=== PATIENT | male | born 1950 ===

== ENCOUNTER → 2018-03-28 10:49 | Outpatient (CLI) | payer OTHER, SELFPAY ==
--- NOTE | 2018-03-28 | DI.CT.S_ITS ---
PROCEDURE: CT ANGIO CHEST PE PROTOCOL INDICATIONS: 67 year-old male with shortness of breath. TECHNIQUE: After the administration of intravenous contrast, 2 mm thick sections acquired from the pulmonary apices to the posterior costophrenic angles. 3-dimensional maximum intensity projection (MIP) coronal and sagittal reformats were then acquired through the thorax. For radiation dose reduction, the following was used: automated exposure control, adjustment of mA and/or kV according to patient size. COMPARISON: None. FINDINGS: Image quality: Excellent. Pulmonary arteries: Pulmonary arteries are normal in size, and demonstrate no intraluminal filling defects to suggest central pulmonary embolism. Lungs and pleura: Lungs are clear. No pleural effusions or pneumothorax. Central and peripheral airways are patent. Mediastinum: There is mild cardiomegaly, with mild coronary artery atherosclerosis. No pericardial effusion. No mediastinal or hilar adenopathy. Thoracic aorta is normal in caliber and enhancement. Esophagus is normal in caliber, with small hiatal hernia. Bones and chest wall: No suspicious bony lesions. There is nonacute lateral right sixth rib fracture. Thoracic spine appears intact throughout, with multilevel disc degeneration. Thyroid gland is normal in overall size. No axillary or supraclavicular adenopathy. Abdomen: There is nonobstructing 2 mm left renal stone. Visualized upper abdominal solid organs appear normal in the early arterial phase of enhancement, status post cholecystectomy. IMPRESSION: 1. No evidence for central pulmonary embolism. 2. No acute pulmonary disease. 3. Nonobstructing 2 mm left renal stone. 4. Nonacute healed right lateral sixth rib fracture. 5. Small hiatal hernia. Dictated by: Taran Scott M.D. on 03/28/2018 at 12:47 Approved by: Taran Scott M.D. on 03/28/2018 at 12:55
[2018-03-28 11:20] LABS: Estimated Glomerular Filt Rate > 60.0 mL/min (>60)
== END ==
PROVIDERS: Family Provider Internal Medicine; PCP Internal Medicine; Visit Provider Internal Medicine
DX: R06.02 Shortness of breath (principal)
CPT/HCPCS: 36415; 71275; 82565; 84520; Q9967

== ENCOUNTER → 2019-01-12 15:14 | Outpatient (CLI) | payer MEDICARE, SELFPAY ==
[2019-01-12 16:25] LABS: Add Manual Diff / Slide Review NO; Basophils Absolute Auto 0 /uL (0-100); Basophils Percent Auto 0.4 % (0-2); Eosinophils Absolute Auto 300 /uL (0-450); Eosinophils Percent Auto 6.2 % (2-4); Hemoglobin 12.5 g/dL (13.5-17.5); Lymphocytes Absolute Auto 1600 /uL (1100-4500); Mean Corpuscular Hemoglobin 30.9 PG (26-34); Mean Corpuscular Volume 93.7 fL (80-100); Monocytes Absolute Auto 400 /uL (0-900); Monocytes Percent Auto 8.7 % (3-14); Neutrophils Absolute Auto 2700 /uL (1500-7000); Neutrophils Percent Auto 52.7 % (50-75); Platelet Count 209 X10^3/uL (150-400); Red Blood Cell Count 4.05 X10^6/uL (4.5-5.9); Red Cell Distribution Width 13.2 % (11.6-14.8); White Blood Cell Count 5.1 X10^3/uL (4.5-11.0)
[2019-01-12 16:44] LABS: B Type Natriuretic Peptide 135 (<100)
[2019-01-12 17:26] LABS: Cholesterol 176 mg/dL (140-199); HDL Cholesterol 57 mg/dL (40-60); LDL Cholesterol Calculated 98 mg/dL (<100); Triglycerides 104 mg/dL (35-150)
[2019-01-12 17:57] LABS: Prostate Specific Antigen Scrn 2.88 ng/mL (0.1-4.0)
[2019-01-12 18:16] LABS: Hep C Virus Ab w/Reflex Quant NEGATIVE s/c (NEGATIVE)
== END ==
PROVIDERS: PCP Internal Medicine; Visit Provider Internal Medicine
DX: E78.00 Pure hypercholesterolemia, unspecified (principal); M15.0 Primary generalized (osteo)arthritis; J45.909 Unspecified asthma, uncomplicated
CPT/HCPCS: 36415; 80061; 83880; 85025; 86803; G0103

== ENCOUNTER → 2019-08-29 16:31 | Outpatient (CLI) | payer OTHER, SELFPAY ==
--- NOTE | 2019-08-29 | DI.RAD.S_ITS ---
PROCEDURE: XR CHEST 2V INDICATIONS: ACUTE BRONCHITIS, UNSPECIFIED ORGANISM TECHNIQUE: 2 views of the chest were acquired. COMPARISON: CT pulmonary angiogram 03/28/2018, [facility], , CHEST 2 VIEW, 01/14/2015, 16:34. FINDINGS: Surgical changes and devices: Cholecystectomy clips. Lungs and pleura: No consolidation. Increased interstitial markings. No pleural effusions or pneumothorax. Mediastinum: Mediastinal contours are unchanged. Heart size is normal. Bones and chest wall: No suspicious bony abnormalities. Prior right-sided rib fracture. Increased density in the lower thoracic spine vertebral bodies with loss of intervertebral disc space height is most compatible with degenerative change and has increased compared to 2015. Soft tissues appear unremarkable. IMPRESSION: No consolidation. Increased interstitial markings compared to prior CXR. This may be due to differences in technique, bronchitis, or emphysematous change. Dictated by: Keagan Kapadia M.D. on 08/30/2019 at 9:31 Approved by: Keagan Kapadia M.D. on 08/30/2019 at 9:36
== END ==
PROVIDERS: PCP Internal Medicine; Visit Provider Internal Medicine
DX: J20.9 Acute bronchitis, unspecified (principal)
CPT/HCPCS: 71046

== ENCOUNTER → 2020-01-21 13:39 | Outpatient (CLI) | payer MEDICARE, SELFPAY ==
[2020-01-21 15:53] LABS: Alanine Aminotransferase 46 IU/L (<50); Albumin 4.5 g/dL (3.5-5.0); Albumin Globulin Ratio 1.4 (1.0-2.8); Alkaline Phosphatase 77 U/L (38-126); Aspartate Aminotransferase 41 IU/L (17-59); BUN Creatinine Ratio 15.6 (6-22); Bilirubin Total 0.4 mg/dL (0.2-1.3); Blood Urea Nitrogen 25 mg/dL (9-20); Calcium 9.6 mg/dL (8.4-10.2); Carbon Dioxide 27 mmol/L (22-32); Chloride 105 mmol/L (98-107); Cholesterol 181 mg/dL (140-199); Estimated Glomerular Filt Rate 43.2 mL/min (>60); Globulin 3.2 g/dL (1.7-4.1); Glucose 104 mg/dL (80-110); HDL Cholesterol 57 mg/dL (40-60); HEMOLYSIS < 15 (0-50); LDL Cholesterol Calculated 93 mg/dL (<100); Potassium 4.8 mmol/L (3.4-5.1); Sodium 139 mmol/L (137-145); Total Protein 7.7 g/dL (6.3-8.2); Triglycerides 157 mg/dL (35-150)
== END ==
PROVIDERS: Referring Provider Internal Medicine; Visit Provider Internal Medicine
DX: E78.00 Pure hypercholesterolemia, unspecified (principal); M15.0 Primary generalized (osteo)arthritis; J45.909 Unspecified asthma, uncomplicated
CPT/HCPCS: 36415; 80053; 80061

== ENCOUNTER → 2020-01-22 15:55 | Outpatient (CLI) | payer MEDICARE, SELFPAY ==
[2020-01-22 17:34] LABS: Add Manual Diff / Slide Review NO; Basophils Absolute Auto 0 /uL (0-100); Basophils Percent Auto 0.6 % (0-2); Eosinophils Absolute Auto 300 /uL (0-450); Hematocrit 36.8 % (41-53); Hemoglobin 12.5 g/dL (13.5-17.5); Lymphocytes Absolute Auto 1600 /uL (1100-4500); Lymphocytes Percent Auto 24.5 % (25-40); Mean Corpuscular HGB Conc 34.1 % (30-36); Mean Corpuscular Hemoglobin 32.2 PG (26-34); Mean Corpuscular Volume 94.5 fL (80-100); Monocytes Absolute Auto 600 /uL (0-900); Monocytes Percent Auto 8.7 % (3-14); Neutrophils Absolute Auto 4000 /uL (1500-7000); Neutrophils Percent Auto 62.2 % (50-75); Platelet Count 210 X10^3/uL (150-400); Red Blood Cell Count 3.89 X10^6/uL (4.5-5.9); Red Cell Distribution Width 13.1 % (11.6-14.8); White Blood Cell Count 6.5 X10^3/uL (4.5-11.0)
[2020-01-22 19:20] LABS: HEMOLYSIS < 15 (0-50); Iron 89 ug/dL (49-181)
[2020-01-22 19:30] LABS: Percent Iron Saturation 25 % (20-50); Total Iron Binding Capacity 350 ug/dL (261-462); Transferrin 293 mg/dL (206-381)
== END ==
PROVIDERS: Visit Provider Internal Medicine
DX: D64.9 Anemia, unspecified (principal)
CPT/HCPCS: 36415; 83540; 83550; 85025

== ENCOUNTER → 2020-12-11 17:40 | Outpatient (CLI) | payer OTHER, SELFPAY ==
[2020-12-11 18:31] LABS: Alanine Aminotransferase 52 IU/L (<50); Albumin Globulin Ratio 1.4 (1.0-2.8); Alkaline Phosphatase 68 U/L (38-126); Aspartate Aminotransferase 47 IU/L (17-59); BUN Creatinine Ratio 13.4 (6-22); Bilirubin Total 0.7 mg/dL (0.2-1.3); Blood Urea Nitrogen 20 mg/dL (9-20); Calcium 9.1 mg/dL (8.4-10.2); Carbon Dioxide 28 mmol/L (22-32); Chloride 103 mmol/L (98-107); Cholesterol 164 mg/dL (140-199); Estimated Glomerular Filt Rate 46.8 mL/min (>60); Globulin 2.8 g/dL (1.7-4.1); Glucose 89 mg/dL (80-110); HDL Cholesterol 60 mg/dL (40-60); HEMOLYSIS < 15 (0-50); LDL Cholesterol Calculated 83 mg/dL (<100); Potassium 4.2 mmol/L (3.4-5.1); Sodium 133 mmol/L (137-145); Total Protein 6.8 g/dL (6.3-8.2); Triglycerides 106 mg/dL (35-150)
== END ==
PROVIDERS: Referring Provider Internal Medicine; Visit Provider Internal Medicine
DX: J45.909 Unspecified asthma, uncomplicated (principal); E78.00 Pure hypercholesterolemia, unspecified; D64.9 Anemia, unspecified; K21.00 Gastro-esophageal reflux disease with esophagitis, without bleeding
CPT/HCPCS: 36415; 80053; 80061

== ENCOUNTER → 2021-04-09 15:49 | Outpatient (CLI) | payer OTHER, SELFPAY ==
[2021-04-09 17:46] LABS: Add Manual Diff / Slide Review NO; Basophils Absolute Auto 0 /uL (0-100); Basophils Percent Auto 0.6 % (0-2); Eosinophils Absolute Auto 300 /uL (0-450); Eosinophils Percent Auto 6.4 % (2-4); Hematocrit 35.3 % (41-53); Hemoglobin 11.7 g/dL (13.5-17.5); Lymphocytes Absolute Auto 1700 /uL (1100-4500); Lymphocytes Percent Auto 31.4 % (25-40); Mean Corpuscular HGB Conc 33.3 % (30-36); Mean Corpuscular Hemoglobin 31.4 PG (26-34); Mean Corpuscular Volume 94.2 fL (80-100); Monocytes Absolute Auto 500 /uL (0-900); Monocytes Percent Auto 9.7 % (3-14); Neutrophils Absolute Auto 2700 /uL (1500-7000); Neutrophils Percent Auto 51.9 % (50-75); Platelet Count 190 X10^3/uL (150-400); Red Blood Cell Count 3.74 X10^6/uL (4.5-5.9); Red Cell Distribution Width 13.8 % (11.6-14.8); White Blood Cell Count 5.3 X10^3/uL (4.5-11.0)
[2021-04-09 18:19] LABS: BUN Creatinine Ratio 14.6 (6-22); Blood Urea Nitrogen 23 mg/dL (9-20); Calcium 9.4 mg/dL (8.4-10.2); Carbon Dioxide 26 mmol/L (22-32); Chloride 105 mmol/L (98-107); Estimated Glomerular Filt Rate 43.7 mL/min (>60); Glucose 98 mg/dL (80-110); HEMOLYSIS < 15 (0-50); Potassium 4.3 mmol/L (3.4-5.1); Sodium 138 mmol/L (137-145)
== END ==
PROVIDERS: Referring Provider Internal Medicine; Visit Provider Internal Medicine
DX: D64.9 Anemia, unspecified (principal); I10 Essential (primary) hypertension; N18.9 Chronic kidney disease, unspecified
CPT/HCPCS: 36415; 80048; 85025

== ENCOUNTER → 2021-11-02 17:15 | Outpatient (CLI) | payer OTHER, SELFPAY ==
[2021-11-02 19:50] LABS: BUN Creatinine Ratio 12.3 (6-22); Blood Urea Nitrogen 20 mg/dL (9-20); Calcium 9.5 mg/dL (8.4-10.2); Carbon Dioxide 30 mmol/L (22-32); Chloride 103 mmol/L (98-107); Glucose 93 mg/dL (80-110); HEMOLYSIS < 15 (0-50); Potassium 4.3 mmol/L (3.4-5.1); Sodium 139 mmol/L (137-145)
== END ==
PROVIDERS: Referring Provider Internal Medicine; Visit Provider Internal Medicine
DX: J45.909 Unspecified asthma, uncomplicated (principal); E78.00 Pure hypercholesterolemia, unspecified; D64.9 Anemia, unspecified; K21.00 Gastro-esophageal reflux disease with esophagitis, without bleeding
CPT/HCPCS: 36415; 80048

== ENCOUNTER → 2022-07-05 15:53 | Outpatient (CLI) | payer MEDICARE, SELFPAY ==
[2022-07-05 16:11] LABS: Hematocrit 35.5 % (41-53); Hemoglobin 12.2 g/dL (13.5-17.5); Mean Corpuscular HGB Conc 34.3 % (30-36); Mean Corpuscular Hemoglobin 30.7 PG (26-34); Mean Corpuscular Volume 89.3 fL (80-100); Platelet Count 205 X10^3/uL (150-400); Red Blood Cell Count 3.97 X10^6/uL (4.5-5.9); Red Cell Distribution Width 14.5 % (11.6-14.8); White Blood Cell Count 5.4 X10^3/uL (4.5-11.0)
[2022-07-05 16:59] LABS: Alanine Aminotransferase 30 IU/L (<50); Albumin 4.2 g/dL (3.5-5.0); Albumin Globulin Ratio 1.3 (1.0-2.8); Alkaline Phosphatase 77 U/L (38-126); Aspartate Aminotransferase 35 IU/L (17-59); BUN Creatinine Ratio 11.8 (6-22); Bilirubin Total 0.4 mg/dL (0.2-1.3); Blood Urea Nitrogen 20 mg/dL (9-20); Calcium 9.1 mg/dL (8.4-10.2); Carbon Dioxide 26 mmol/L (22-32); Chloride 105 mmol/L (98-107); Cholesterol 182 mg/dL (140-199); Estimated Glomerular Filt Rate 43 mL/min (>60); Globulin 3.3 g/dL (1.7-4.1); Glucose 97 mg/dL (80-110); HDL Cholesterol 46 mg/dL (40-60); HEMOLYSIS < 15 (0-50); LDL Cholesterol Calculated 98 mg/dL (<100); Potassium 4.6 mmol/L (3.4-5.1); Sodium 137 mmol/L (137-145); Total Protein 7.5 g/dL (6.3-8.2); Triglycerides 188 mg/dL (35-150)
[2022-07-05 17:28] LABS: Prostate Specific Antigen 3.53 ng/mL (0.10-4.00)
[2022-07-08 06:00] LABS: Calcium 9.4 mg/dL (8.6-10.2); Parathyroid Hormone, Intact 82 pg/mL (15-65)
== END ==
PROVIDERS: PCP Internal Medicine; Referring Provider Internal Medicine; Visit Provider Internal Medicine
DX: E78.2 Mixed hyperlipidemia (principal); N40.1 Benign prostatic hyperplasia with lower urinary tract symptoms; N13.8 Other obstructive and reflux uropathy; N18.32 Chronic kidney disease, stage 3b
CPT/HCPCS: 36415; 80053; 80061; 82310; 83970; 84153; 84443; 85027

== ENCOUNTER → 2022-07-30 10:08 | Outpatient (CLI) | payer MEDICARE, SELFPAY | PROVIDERS: PCP Internal Medicine; Visit Provider Nurse Practitioner Family | DX: R21 Rash and other nonspecific skin eruption (principal) | CPT/HCPCS: 87070; 87077; 87186; 87205; 87252 ==

== ENCOUNTER 2022-10-05 10:30 | Outpatient (RCR) | payer MEDICARE, SELFPAY ==
--- NOTE | 2022-07-19 15:53 | PT.OIE ---
Current Diagnoses Muscle weakness (generalized) (07/19/22) Other shoulder lesions, right shoulder (07/19/22) Abnormal posture (07/19/22) Past Medical History (Last Updated 07/08/22 @ 07:57 by Miller Timmons MD) Allergic rhinitis Anemia (~1979) Ankle pain (~1975) Asthma, mild intermittent BPH w urinary obs/LUTS Cataracts, bilateral (~2014) Chicken pox (~1954) Chronic stasis dermatitis of left lower extremity Edema of left lower extremity due to peripheral venous insufficiency GERD without esophagitis Hearing loss (~1993) Hemorrhoid (~2009) Mixed hyperlipidemia Mumps (~1952) Primary osteoarthritis involving multiple joints Right rotator cuff tendonitis Secondary hyperparathyroidism (of renal origin) Secondary osteoarthritis, left ankle and foot Stage 3b chronic kidney disease (CKD) Past Surgical History (Last Reviewed 07/05/22 @ 12:48 by Miller Timmons MD) Anesthesia History of tonsillectomy (~1953) Status post appendectomy (~1964) Status post cholecystectomy (~1985) Status post hernia repair Visit Care Team Role Provider Type Miller Timmons MD Attending Provider Physician Primary Care Provider Referring Provider Specialty: Internal Medicine Address: [address] [place] [address] Email: [email or web address] Physical Therapy Initial Evaluation PT-OP-A Visit Information Start: 07/16/22 17:01 Freq: Status: Active Protocol: Document 07/19/22 13:03 LRN (Rec: 07/19/22 14:37 [id number]) Out-Patient Physical Therapy Visit Information Visit Information Visit Type Initial Evaluation Visit Start Time 13:03 Visit Stop Time 13:55 Total Visit Minutes 55 Visit Number 1 Evaluation Information Evaluation Date 07/19/22 Precautions Precautions L ankle injury receiving cortisone injections quarterly over 4 yrs, 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 PT-OP-B Current Condition Start: 07/16/22 17:01 Freq: Status: Active Protocol: Document 07/19/22 13:03 LRN (Rec: 07/19/22 14:37 LRN [id number]) Current Condition History of Current Condition Onset Date Dec 2021 Current Complaints Lacks R shoulder motion overhead and lacks strength History of Current Condition Pain exacerbated by doing a lot of overhead work at home. Acute injury to rotator cuff late Dec became noticeable playing volleyball and doing overhead work (wiring and lightbulb work) because of difficulty reaching overhead and maintaining strength (ex- overhand hits of volleyball). Two year hold on playing volleyball due to C19 Pandemic ; when returned to volleyball was unable to toss ball up and hit it overhead with R arm. During the 2 yrs hiatus from volleyball he did a lot of overhead work remodeling his house. He does aerobic exer daily ([place] track 80 minutes and stair-stepper) and he self K-tapes his R biceps due to tear/separation. Prior Treatments and Tests None for R shoulder. L ankle getting cortisone injections 3-4 times/year due to bad injury in his 20's. Treatment Goals Patient/Caregiver Goals Pt goal: Be able to retain some ability to reach overhead with 80% ROM, Be able to play volleyball using R hand to throw & hit volleyball, Do normal things (reach overhead and put in a lightbulb or rewire a light without having to use the L hand) without crunching in the R shoulder. Prior Functional Status Baseline Function- ADL's Independent Baseline Function- Mobility Independent Baseline Function- Recreation/Hobbies Played volleyball 2-3x/week. Taking IBP propholactically. Baseline Function- Other Occasional pain in L shoulder 2-3/10 throwing volleyball up and hitting the ball. Uses K-tape on L shoulder, and starting using it on the R shoulder ~February for biceps. Current Functional Impairments (Reported) Functional Limitations- ADL's Debilitating reaching overhead and holding anything overhead . Has pain down his upper forearm with sleeping and on waking has throbbing in the R arm. 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 Functional Limitations- Recreation/ Volleyball play 2x/week (Wed, Hobbies Fri and sometimes weekends) Personal Factors Other Personal Factors That May Effect Plays volleyball 2-3x/week, Therapy/Recovery Hard of hearing, R hand dominant, arthritis. PT-OP-C Subjective Start: 07/16/22 17:01 Freq: Status: Active Protocol: Document 07/19/22 13:03 LRN (Rec: 07/19/22 14:37 LRN [id number]) Patient Questionnaires Quick Dash- Upper Extremity Quick Dash UE Score 27.27 Quick Dash UE Impairment 20 to 39% Impaired (Score 20- 39) OP-PT Pain Assessment Pain Assessment Grid Paper Pain Assessment Grid Completed Yes Location R shoulder Pain Location Details Subacromial, Infraspinatus and Teres Minor tendon at humeral head Intensity 6 Scale Used Numeric (0 - 10) Description Sharp Description- Other Alway when reaching R elbow above shoulder Frequency Intermittent PT-OP-E Functional Tests Start: 07/16/22 17:01 Freq: Status: Active Protocol: Document 07/19/22 13:03 LRN (Rec: 07/19/22 14:37 LRN [id number]) Functional Tests Apley's Scratch Test Action 1- Left Top of opp shoulder Action 1- Right Top of opp shoulder Action 2- Left C7 Action 2- Right C7 Action 3- Left L5-S1 interspace Action 3- Right Lateral border of sacrum PT-OP-H Neuro Start: 07/16/22 17:01 Freq: Status: Active Protocol: Document 07/19/22 13:03 LRN (Rec: 07/19/22 14:37 LRN [id number]) Sensation Evaluation Gross Sensation Gross Sensation WNL Comments Summary Comments Occasional numbness/throbbing in radial side of forearm and into the hand radial>ulnar side. Started ~Oct 2021. Occssionally occurred in past when sleeping on the arm wrong . Can come and go. PT-OP-J Posture/Palpation/Skin Start: 07/16/22 17:01 Freq: Status: Active Protocol: Document 07/19/22 13:03 LRN (Rec: 07/19/22 14:37 LRN [id number]) Posture Evaluation Position Standing Head/C-Spine Posture Forward Head T-Spine Posture Increased Kyphosis L-Spine Posture Decreased Lordosis Shoulder Posture (L) Elevated Scapula Posture (R) Rotated Down,(R) Depressed Arm Posture (R) Neutral Hip Posture (L) Flexed,(R) Flexed Comments Posture Comments R shoulder low, and retracted, stands R leg forward. Wears heavy above ankle high boots for ankle support. Palpation Assessment Location R posterior shoulder Palpation Location Teres Minor Palpation Findings Tenderness R shoulder Palpation Location R shoulder Infraspinatus, Teres Minor Palpation Findings Tenderness PT-OP-K Range of Motion Start: 07/16/22 17:01 Freq: Status: Active Protocol: Document 07/19/22 13:03 LRN (Rec: 07/19/22 14:37 LRN [id number]) Cervical Spine Range of Motion Cervical Spine Active Degrees Testing Position Sitting Flexion 65 Extension 45 Rotation Left 50 Rotation Right 50 Lateral Flexion Left 30 Lateral Flexion Right 40 ROM Limitations Soft Tissue Tightness Comments C.SB limited due to L shoulder injury at age 12. Shoulder Goniometric Range of Motion Shoulder Right Passive Shoulder ROM WFL Yes Testing Position Supine Left Passive Shoulder ROM WFL No Testing Position Supine Right Active Shoulder ROM WFL Yes Testing Position Sitting Flexion 144 Extension 55 Abduction 145 External Rotation at 0 degrees Abduction 50 Internal Rotation Behind Back (text) Lateral border of sacrum Left Active Shoulder ROM WFL No Testing Position Sitting Flexion 142 Extension 52 Abduction 140 External Rotation at 0 degrees Abduction 62 Internal Rotation Behind Back (text) L5-S1 interspace PT-OP-L Special Tests Start: 07/16/22 17:01 Freq: Status: Active Protocol: Document 07/19/22 13:03 LRN (Rec: 07/19/22 14:37 LRN [id number]) Special Tests Shoulder Special Tests IR/Horizontal ADD Impingement Test Results Positive R shoulder Comments Pain at RC attachment location at humeral head. Elevation Impingement Test Results Positive R shoulder Comments Pain at RC attachment location at humeral head. PT-OP-M Strength Start: 07/16/22 17:01 Freq: Status: Active Protocol: Document 07/19/22 13:03 LRN (Rec: 07/19/22 14:37 LRN [id number]) Cervical Spine Strength Cervical Spine Manual Muscle Testing Testing Position Sitting Comments Generally 5/5 Shoulder Strength Shoulder Manual Muscle Testing Right Flexion 3+ Fair+ Abduction (C5) 3+ Fair+ External Rotation 3+ Fair+ Internal Rotation 3+ Fair+ Comments Strength is 5/5 except as indicated above. Left External Rotation 3 Fair Comments Strength is 5/5 except as indicated above. PT-OP-Q Treatments Start: 07/16/22 17:01 Freq: Status: Active Protocol: Document 07/19/22 13:03 LRN (Rec: 07/19/22 14:37 LRN [id number]) Self-Care/Home Management Treatment Education Other Education Discussed results of evaluation, goals, and plan of care (POC). Pt agreeable to goals and POC. Activities Self-Care/Home Management Activities I/S pt in active shoulder ER/ IR ROM and sidelie ER/IR for strengthening. PT-OP-T Assessment and Plan Start: 07/16/22 17:01 Freq: Status: Active Protocol: Document 07/19/22 13:03 LRN (Rec: 07/19/22 14:37 LRN [id number]) Physical Therapy Assessment Rehab Potential Rehabilitation Potential Good Evaluation Complexity Number of Personal Factors/Comorbidities 1-2 Number of Body Systems Impaired 4 or More Clinical Presentation at Evaluation Evolving Impairments Impairments Activity Tolerance,Pain,ROM, Strength Goals Three Impairment R shoulder pain (6/10) limiting mobility. Impairment Sometimes can't move R shoulder overhead due to pain rated 6/10. UE Quickdash score 27 (20-39% impaired, score 20-39) Short Term Goal (STG) Patient will be able to reach 80% AROM overhead without pain , and decrease R shoulder with sleepinging. STG Duration 09/03/22 Applications Instructor Goal (LTG) Reduce pain with avg use of R arm (pain 2-3/10 moving slowly ) and improved function per UE Quickdash score 19 or less. LTG Duration 10/13/22 Two Impairment R shoulder decreased strength. Impairment R shoulder: flex, AB, ER, IR is 3+/5 (L shoulder: 5/5 except ER is 3/5). Short Term Goal (STG) Decreased pt perception of crepitus of R shoulder with overhead motions. STG Duration 09/03/22 Prison Goal (LTG) Be able to play volleyball using R hand to throw & hit volleyball, and do normal things (reach overhead to strike a volleyball, use a hammer or drill overhead, or reach ladder and motion of putting in a lightbulb without having to use the L hand. LTG Duration 10/17/22 One Impairment Lacks appropriate self care HEP Short Term Goal (STG) Pt will be educated in proper sitting/standing posture and best nighttime for pain management. Improve pt's R shoulder IR AROM. STG Duration 07/30/22 Applications Instructor Goal (LTG) Pt will be independent in a self care HEP of neck and R shoulder ex's. LTG Duration 10/17/22 Assessment Summary Assessment Pt presents with complaints of R shoulder crepitus that is consistent with an arthritic joint except for symptoms of RC occasional pain in the joint that is felt with moving the arm overhead. He appears to have good R shoulder mobility although painful. He has decreased functional strength with overhead motions and occasional sharp pain. He is most weak with R shoulder ER and he only complains of pain in the shoulder joint. Provocative testing for R RC dysfunction is positive. The pt has additional dysfunction of R Biceps tear that he is quick to point out. The pt will benefit from skilled physical therapy to improve R shoulder mobility, pain level and function. 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 Physical Therapy Plan Frequency and Duration Frequency of Treatment 2x/Week Plan of Care Start Date 07/19/22 Plan of Care End Date 09/03/22 Therapeutic Interventions Therapeutic Interventions Home Exercise Program,Joint Mobilizations,Manual Therapy, Neuromuscular Re-education, Patient/Caregiver Education, Self-Care/Home Management,Soft Tissue Mobilization,Taping, Therapeutic Activities, Therapeutic Exercises Modalities Cold Pack/Ice Massage,Electric Stimulation,Hot Packs Next Visit Focus/Plan Next Note Type Treatment Note Next Visit Plan Education: Posture & nighttime positioning, use of modalities (ice). R shoulder RC strengthening Check: supine R shldr ROM & JMT; C/S (tests); biceps (ROM/ strength) HEP: Add C/S ROM (SB, rot), scap stabilizers & RC ex's Modalities to end as needed ( ice/IFES).
--- NOTE | 2022-07-19 15:54 | PT.OPPOC ---
Physical, Occupational & Speech Therapy At [facility] Current Diagnoses Muscle weakness (generalized) (07/19/22) Other shoulder lesions, right shoulder (07/19/22) Abnormal posture (07/19/22) Visit Care Team Role Provider Type Miller Timmons MD Attending Provider Physician Primary Care Provider Referring Provider Specialty: Internal Medicine Address: [address] [place] [address], [facility] Email: [email or web address] Plan Of Care PT-OP-T Assessment and Plan Start: 07/16/22 17:01 Freq: Status: Active Protocol: Document 07/19/22 13:03 LRN (Rec: 07/19/22 14:37 LRN [id number]) Physical Therapy Assessment Rehab Potential Rehabilitation Potential Good Evaluation Complexity Number of Personal Factors/Comorbidities 1-2 Number of Body Systems Impaired 4 or More Clinical Presentation at Evaluation Evolving Impairments Impairments Activity Tolerance,Pain,ROM, Strength Goals Three Impairment R shoulder pain (6/10) limiting mobility. Impairment Sometimes can't move R shoulder overhead due to pain rated 6/10. UE Quickdash score 27 (20-39% impaired, score 20-39) Short Term Goal (STG) Patient will be able to reach 80% AROM overhead without pain , and decrease R shoulder with sleepinging. STG Duration 09/03/22 Prison Goal (LTG) Reduce pain with avg use of R arm (pain 2-3/10 moving slowly ) and improved function per UE Quickdash score 19 or less. LTG Duration 10/13/22 Two Impairment R shoulder decreased strength. Impairment R shoulder: flex, AB, ER, IR is 3+/5 (L shoulder: 5/5 except ER is 3/5). Short Term Goal (STG) Decreased pt perception of crepitus of R shoulder with overhead motions. STG Duration 09/03/22 Prison Goal (LTG) Be able to play volleyball using R hand to throw & hit volleyball, and do normal things (reach overhead to strike a volleyball, use a hammer or drill overhead, or reach ladder and motion of putting in a lightbulb without having to use the L hand. LTG Duration 10/17/22 One Impairment Lacks appropriate self care HEP Short Term Goal (STG) Pt will be educated in proper sitting/standing posture and best nighttime for pain management. Improve pt's R shoulder IR AROM. STG Duration 07/30/22 Prison Goal (LTG) Pt will be independent in a self care HEP of neck and R shoulder ex's. LTG Duration 10/17/22 Assessment Summary Assessment Pt presents with complaints of R shoulder crepitus that is consistent with an arthritic joint except for symptoms of RC occasional pain in the joint that is felt with moving the arm overhead. He appears to have good R shoulder mobility although painful. He has decreased functional strength with overhead motions and occasional sharp pain. He is most weak with R shoulder ER and he only complains of pain in the shoulder joint. Provocative testing for R RC dysfunction is positive. The pt has additional dysfunction of R Biceps tear that he is quick to point out. The pt will benefit from skilled physical therapy to improve R shoulder mobility, pain level and function. 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 Physical Therapy Plan Frequency and Duration Frequency of Treatment 2x/Week Plan of Care Start Date 07/19/22 Plan of Care End Date 09/03/22 Therapeutic Interventions Therapeutic Interventions Home Exercise Program,Joint Mobilizations,Manual Therapy, Neuromuscular Re-education, Patient/Caregiver Education, Self-Care/Home Management,Soft Tissue Mobilization,Taping, Therapeutic Activities, Therapeutic Exercises Modalities Cold Pack/Ice Massage,Electric Stimulation,Hot Packs Next Visit Focus/Plan Next Note Type Treatment Note Next Visit Plan Education: Posture & nighttime positioning, use of modalities (ice). R shoulder RC strengthening Check: supine R shldr ROM & JMT; C/S (tests); biceps (ROM/ strength) HEP: Add C/S ROM (SB, rot), scap stabilizers & RC ex's Modalities to end as needed ( ice/IFES). Plan of Care Dates Plan of Care Start Date 07/19/22 Plan of Care End Date 09/03/22 Electronically Signed by: Maite Clinton, PT 07/19/22 3028 If you are in agreement with this Plan of Care, please return a signed and dated copy. I have reviewed this Plan of Care and certify that the skilled therapy services above are required to meet the patient?s needs. Physician Signature Date Printed Name and Credentials Clinical Instructor Signature Printed Name and Credentials
--- NOTE | 2022-07-23 17:14 | PT.OTN ---
Current Diagnoses Muscle weakness (generalized) (07/23/22) Other shoulder lesions, right shoulder (07/23/22) Abnormal posture (07/23/22) Physical Therapy Treatment Note PT-OP-A Visit Information Start: 07/16/22 17:01 Freq: Status: Active Protocol: Document 07/23/22 14:34 LRN (Rec: 07/23/22 17:13 LRN [id number]) Out-Patient Physical Therapy Visit Information Visit Information Visit Type Treatment Note Visit Start Time 14:34 Visit Stop Time 15:17 Total Visit Minutes 43 Visit Number 2 Evaluation Information Evaluation Date 07/19/22 Precautions Precautions L ankle injury receiving cortisone injections quarterly over 4 yrs, 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 PT-OP-B Current Condition Start: 07/16/22 17:01 Freq: Status: Active Protocol: Document 07/19/22 13:03 LRN (Rec: 07/19/22 14:37 LRN [id number]) Current Condition History of Current Condition Onset Date Dec 2021 Current Complaints Lacks R shoulder motion overhead and lacks strength History of Current Condition Pain exacerbated by doing a lot of overhead work at home. Acute injury to rotator cuff late Dec became noticeable playing volleyball and doing overhead work (wiring and lightbulb work) because of difficulty reaching overhead and maintaining strength (ex- overhand hits of volleyball). Two year hold on playing volleyball due to C19 Pandemic ; when returned to volleyball was unable to toss ball up and hit it overhead with R arm. During the 2 yrs hiatus from volleyball he did a lot of overhead work remodeling his house. He does aerobic exer daily ([place] track 80 minutes and stair-stepper) and he self K-tapes his R biceps due to tear/separation. Prior Treatments and Tests None for R shoulder. L ankle getting cortisone injections 3-4 times/year due to bad injury in his 's. Treatment Goals Patient/Caregiver Goals Pt goal: Be able to retain some ability to reach overhead with 80% ROM, Be able to play volleyball using R hand to throw & hit volleyball, Do normal things (reach overhead and put in a lightbulb or rewire a light without having to use the L hand) without crunching in the R shoulder. Prior Functional Status Baseline Function- ADL's Independent Baseline Function- Mobility Independent Baseline Function- Recreation/Hobbies Played volleyball 2-3x/week. Taking IBP propholactically. Baseline Function- Other Occasional pain in L shoulder 2-3 throwing volleyball up and hitting the ball. Uses K-tape on L shoulder, and starting using it on the R shoulder ~February for biceps. Current Functional Impairments (Reported) Functional Limitations- ADL's Debilitating reaching overhead and holding anything overhead . Has pain down his upper forearm with sleeping and on waking has throbbing in the R arm. 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 Functional Limitations- Recreation/ Volleyball play 2x/week (Wed, Hobbies Tue and sometimes weekends) Personal Factors Other Personal Factors That May Effect Plays volleyball 2-3x/week, Therapy/Recovery Hard of hearing, R hand dominant, arthritis. PT-OP-C Subjective Start: 07/16/22 17:01 Freq: Status: Active Protocol: Document 07/23/22 14:34 LRN (Rec: 07/23/22 17:13 LRN [id number]) OP-PT Subjective Patient Comments Patient Comments States he has pain in R shoulder at night when lying on it. He typically starts in L sidelie, then moves to back and partially on R. Pt reports he has had injury to his L ACJ in the past. PT-OP-E Functional Tests Start: 07/16/22 17:01 Freq: Status: Active Protocol: Document 07/19/22 13:03 LRN (Rec: 07/19/22 14:37 LRN [id number]) Functional Tests Apley's Scratch Test Action 1- Left Top of opp shoulder Action 1- Right Top of opp shoulder Action 2- Left C7 Action 2- Right C7 Action 3- Left L5-S1 interspace Action 3- Right Lateral border of sacrum PT-OP-H Neuro Start: 07/16/22 17:01 Freq: Status: Active Protocol: Document 07/19/22 13:03 LRN (Rec: 07/19/22 14:37 LRN [id number]) Sensation Evaluation Gross Sensation Gross Sensation WNL Comments Summary Comments Occasional numbness/throbbing in radial side of forearm and into the hand radial>ulnar side. Started ~Oct 2021. Occssionally occurred in past when sleeping on the arm wrong . Can come and go. PT-OP-J Posture/Palpation/Skin Start: 07/16/22 17:01 Freq: Status: Active Protocol: Document 07/19/22 13:03 LRN (Rec: 07/19/22 14:37 LRN [id number]) Posture Evaluation Position Standing Head/C-Spine Posture Forward Head T-Spine Posture Increased Kyphosis L-Spine Posture Decreased Lordosis Shoulder Posture (L) Elevated Scapula Posture (R) Rotated Down,(R) Depressed Arm Posture (R) Neutral Hip Posture (L) Flexed,(R) Flexed Comments Posture Comments R shoulder low, and retracted, stands R leg forward. Wears heavy above ankle high boots for ankle support. Palpation Assessment Location R posterior shoulder Palpation Location Teres Minor Palpation Findings Tenderness R shoulder Palpation Location R shoulder Infraspinatus, Teres Minor Palpation Findings Tenderness PT-OP-K Range of Motion Start: 07/16/22 17:01 Freq: Status: Active Protocol: Document 07/23/22 14:34 LRN (Rec: 07/23/22 17:13 LRN [id number]) Shoulder Goniometric Range of Motion Shoulder Right Passive Shoulder ROM WFL No Testing Position Supine Flexion 135 Abduction 64 External Rotation at 90 degrees 60 Abduction Internal Rotation 20 Comments Slight pain on return from flex (internal GHJ) Pure AB is with pain on top of shoulder. AB (scapular plane) is 170 with painful arc at 120 deg's. ER (w/arm in AB 60 deg's) - 45 deg's, IR (w/arm in AB 60 deg's) - 28 deg's. Left Passive Shoulder ROM WFL No Testing Position Supine Flexion 150 Abduction 108 Internal Rotation 40 Comments AB (scapular plane) is 180 deg 's. ER (w/arm in AB 60 deg's) - 90 deg's, IR (w/arm in AB 60 deg's) - 40 deg's. PT-OP-L Special Tests Start: 07/16/22 17:01 Freq: Status: Active Protocol: Document 07/23/22 14:34 LRN (Rec: 07/23/22 17:13 LRN [id number]) Special Tests Cervical Spine Special Tests Spurling's Test Test Results Negative Traction Comments Created pain in L medial scapula border. Foraminal Compression Test Results Negative Comments No change in UE sensation. PT-OP-M Strength Start: 07/16/22 17:01 Freq: Status: Active Protocol: Document 07/19/22 13:03 LRN (Rec: 07/19/22 14:37 LRN [id number]) Cervical Spine Strength Cervical Spine Manual Muscle Testing Testing Position Sitting Comments Generally 5/5 Shoulder Strength Shoulder Manual Muscle Testing Right Flexion 3+ Fair+ Abduction (C5) 3+ Fair+ External Rotation 3+ Fair+ Internal Rotation 3+ Fair+ Comments Strength is 5/5 except as indicated above. Left External Rotation 3 Fair Comments Strength is 5/5 except as indicated above. PT-OP-Q Treatments Start: 07/16/22 17:01 Freq: Status: Active Protocol: Document 07/23/22 14:34 LRN (Rec: 07/23/22 17:13 LRN [id number]) Therapeutic Exercises Supine Exercises Shoulder IR Supine Exercise Name Shoulder IR stretch Side bilateral Comments ROM taken, arm in 60 deg's AB with shldr stabilized Shoulder ER Supine Exercise Name Shoulder ER stretch Side bilateral Comments ROM taken, arm in 60 deg's AB Shoulder AB Supine Exercise Name Shoulder AB stretch Side bilateral Comments ROM taken Shoulder Flex Supine Exercise Name Shoulder flex stretch Side bilateral Comments ROM taken Lat Pull Down Supine Exercise Name Lat Pull Down Reps/Minutes 10x 3 Comments Pt cuing needed for working in painfree range. Self-Care/Home Management Treatment Education Patient Education Posture Other Education Pt education and discussion in proper sitting and standing posture with review of handout . Pt discusssion and education in nighttime positioning on bilateral sides with midification using pillows to prop back, between knees and for hugging a pillow. PT-OP-T Assessment and Plan Start: 07/16/22 17:01 Freq: Status: Active Protocol: Document 07/23/22 14:34 LRN (Rec: 07/23/22 17:13 LRN [id number]) Physical Therapy Assessment Goals Three Impairment R shoulder pain (6/10) limiting mobility. Impairment Sometimes can't move R shoulder overhead due to pain rated 6/10. UE Quickdash score 27 (20-39% impaired, score 20-39) Short Term Goal (STG) Patient will be able to reach 80% AROM overhead without pain , and decrease R shoulder with sleepinging. STG Duration 09/03/22 Forging Die Finisher Goal (LTG) Reduce pain with avg use of R arm (pain 2-3/10 moving slowly ) and improved function per UE Quickdash score 19 or less. LTG Duration 10/13/22 Two Impairment R shoulder decreased strength. Impairment R shoulder: flex, AB, ER, IR is 3+/5 (L shoulder: 5/5 except ER is 3/5). Short Term Goal (STG) Decreased pt perception of crepitus of R shoulder with overhead motions. STG Duration 09/03/22 Forging Die Finisher Goal (LTG) Be able to play volleyball using R hand to throw & hit volleyball, and do normal things (reach overhead to strike a volleyball, use a hammer or drill overhead, or reach ladder and motion of putting in a lightbulb without having to use the L hand. LTG Duration 10/17/22 One Impairment Lacks appropriate self care HEP Short Term Goal (STG) Pt will be educated in proper sitting/standing posture and best nighttime for pain management. Improve pt's R shoulder IR AROM. STG Duration 07/30/22 (07/23/22: Partiall met goal: education of posture) Forging Die Finisher Goal (LTG) Pt will be independent in a self care HEP of neck and R shoulder ex's. LTG Duration 10/17/22 Assessment Summary Assessment Pt has R shoulder crepitus that is consistent with an arthritic joint, and R RC occasional pain in the joint with overhead movements. He does not appear to have cervical involvement per provocative testing. + response to R side lying after training, without onset of numbness tingling in R thumb, index and middle finger after 4'. Pt is receptive to posture education in sitting, standing and for sleeping positions of greater R shoulder comfort. Pt's R shoulder supine ROM is limited with all motions and demonstrates painful arc with AB and impingement with forced flexion and AB, indicating RC dysfunction. Physical Therapy Plan Frequency and Duration Frequency of Treatment 2x/Week Plan of Care Start Date 07/19/22 Plan of Care End Date 09/03/22 Next Visit Focus/Plan Next Note Type Treatment Note Next Visit Plan Education: use of modalities ( ice). R shoulder RC strengthening Check: JMT; biceps (ROM/ strength) HEP: Add C/S ROM (SB, rot), scap stabilizers & RC ex's Modalities to end as needed ( ice/IFES).
--- NOTE | 2022-08-02 17:33 | PT.OTN ---
Current Diagnoses Muscle weakness (generalized) (08/02/22) Other shoulder lesions, right shoulder (08/02/22) Abnormal posture (08/02/22) Physical Therapy Treatment Note PT-OP-A Visit Information Start: 07/16/22 17:01 Freq: Status: Active Protocol: Document 08/02/22 16:45 DCW (Rec: 08/02/22 17:32 DCW [id number]) Out-Patient Physical Therapy Visit Information Visit Information Visit Type Treatment Note Visit Start Time 16:45 Visit Stop Time 17:30 Total Visit Minutes 45 Visit Number 3 Evaluation Information Evaluation Date 07/19/22 Precautions Precautions L ankle injury receiving cortisone injections quarterly over 4 yrs, 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 PT-OP-B Current Condition Start: 07/16/22 17:01 Freq: Status: Active Protocol: Document 07/19/22 13:03 LRN (Rec: 07/19/22 14:37 LRN [id number]) Current Condition History of Current Condition Onset Date Dec 2021 Current Complaints Lacks R shoulder motion overhead and lacks strength History of Current Condition Pain exacerbated by doing a lot of overhead work at home. Acute injury to rotator cuff late Dec became noticeable playing volleyball and doing overhead work (wiring and lightbulb work) because of difficulty reaching overhead and maintaining strength (ex- overhand hits of volleyball). Two year hold on playing volleyball due to C19 Pandemic ; when returned to volleyball was unable to toss ball up and hit it overhead with R arm. During the 2 yrs hiatus from volleyball he did a lot of overhead work remodeling his house. He does aerobic exer daily ([place] track 80 minutes and stair-stepper) and he self K-tapes his R biceps due to tear/separation. Prior Treatments and Tests None for R shoulder. L ankle getting cortisone injections 3-4 times/year due to bad injury in his 's. Treatment Goals Patient/Caregiver Goals Pt goal: Be able to retain some ability to reach overhead with 80% ROM, Be able to play volleyball using R hand to throw & hit volleyball, Do normal things (reach overhead and put in a lightbulb or rewire a light without having to use the L hand) without crunching in the R shoulder. Prior Functional Status Baseline Function- ADL's Independent Baseline Function- Mobility Independent Baseline Function- Recreation/Hobbies Played volleyball 2-3x/week. Taking IBP propholactically. Baseline Function- Other Occasional pain in L shoulder 2-3/ throwing volleyball up and hitting the ball. Uses K-tape on L shoulder, and starting using it on the R shoulder ~February for biceps. Current Functional Impairments (Reported) Functional Limitations- ADL's Debilitating reaching overhead and holding anything overhead . Has pain down his upper forearm with sleeping and on waking has throbbing in the R arm. 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 Functional Limitations- Recreation/ Volleyball play 2x/week (Tue, Hobbies Tue and sometimes weekends) Personal Factors Other Personal Factors That May Effect Plays volleyball 2-3x/week, Therapy/Recovery Hard of hearing, R hand dominant, arthritis. PT-OP-C Subjective Start: 07/16/22 17:01 Freq: Status: Active Protocol: Document 08/02/22 16:45 DCW (Rec: 08/02/22 17:32 DCW [id number]) OP-PT Subjective Patient Comments Patient Comments Pt notes he had an ear infection over last weekend. PT-OP-E Functional Tests Start: 07/16/22 17:01 Freq: Status: Active Protocol: Document 07/19/22 13:03 LRN (Rec: 07/19/22 14:37 LRN [id number]) Functional Tests Apley's Scratch Test Action 1- Left Top of opp shoulder Action 1- Right Top of opp shoulder Action 2- Left C7 Action 2- Right C7 Action 3- Left L5-S1 interspace Action 3- Right Lateral border of sacrum PT-OP-H Neuro Start: 07/16/22 17:01 Freq: Status: Active Protocol: Document 07/19/22 13:03 LRN (Rec: 07/19/22 14:37 LRN [id number]) Sensation Evaluation Gross Sensation Gross Sensation WNL Comments Summary Comments Occasional numbness/throbbing in radial side of forearm and into the hand radial>ulnar side. Started ~Oct 2021. Occssionally occurred in past when sleeping on the arm wrong . Can come and go. PT-OP-J Posture/Palpation/Skin Start: 07/16/22 17:01 Freq: Status: Active Protocol: Document 07/19/22 13:03 LRN (Rec: 07/19/22 14:37 LRN [id number]) Posture Evaluation Position Standing Head/C-Spine Posture Forward Head T-Spine Posture Increased Kyphosis L-Spine Posture Decreased Lordosis Shoulder Posture (L) Elevated Scapula Posture (R) Rotated Down,(R) Depressed Arm Posture (R) Neutral Hip Posture (L) Flexed,(R) Flexed Comments Posture Comments R shoulder low, and retracted, stands R leg forward. Wears heavy above ankle high boots for ankle support. Palpation Assessment Location R posterior shoulder Palpation Location Teres Minor Palpation Findings Tenderness R shoulder Palpation Location R shoulder Infraspinatus, Teres Minor Palpation Findings Tenderness PT-OP-K Range of Motion Start: 07/16/22 17:01 Freq: Status: Active Protocol: Document 07/23/22 14:34 LRN (Rec: 07/23/22 17:13 LRN [id number]) Shoulder Goniometric Range of Motion Shoulder Right Passive Shoulder ROM WFL No Testing Position Supine Flexion 135 Abduction 64 External Rotation at 90 degrees 60 Abduction Internal Rotation 20 Comments Slight pain on return from flex (internal GHJ) Pure AB is with pain on top of shoulder. AB (scapular plane) is 170 with painful arc at 120 deg's. ER (w/arm in AB 60 deg's) - 45 deg's, IR (w/arm in AB 60 deg's) - 28 deg's. Left Passive Shoulder ROM WFL No Testing Position Supine Flexion 150 Abduction 108 Internal Rotation 40 Comments AB (scapular plane) is 180 deg 's. ER (w/arm in AB 60 deg's) - 90 deg's, IR (w/arm in AB 60 deg's) - 40 deg's. PT-OP-L Special Tests Start: 07/16/22 17:01 Freq: Status: Active Protocol: Document 07/23/22 14:34 LRN (Rec: 07/23/22 17:13 LRN [id number]) Special Tests Cervical Spine Special Tests Spurling's Test Test Results Negative Traction Comments Created pain in L medial scapula border. Foraminal Compression Test Results Negative Comments No change in UE sensation. PT-OP-M Strength Start: 07/16/22 17:01 Freq: Status: Active Protocol: Document 07/19/22 13:03 LRN (Rec: 07/19/22 14:37 LRN [id number]) Cervical Spine Strength Cervical Spine Manual Muscle Testing Testing Position Sitting Comments Generally 5/5 Shoulder Strength Shoulder Manual Muscle Testing Right Flexion 3+ Fair+ Abduction (C5) 3+ Fair+ External Rotation 3+ Fair+ Internal Rotation 3+ Fair+ Comments Strength is 5/5 except as indicated above. Left External Rotation 3 Fair Comments Strength is 5/5 except as indicated above. PT-OP-Q Treatments Start: 07/16/22 17:01 Freq: Status: Active Protocol: Document 08/02/22 16:45 DCW (Rec: 08/02/22 17:32 DCW [id number]) Cardio Equipment Upper Body Ergometer (UBE) Duration (Minutes) 4 Seat Position 12 Height 1.5 Therapeutic Exercises Supine Exercises Supine Flys Supine Exercise Name Horizontal Adduction Side bilateral Resistance 2# Reps/Minutes x20 Serratus Punch Supine Exercise Name Serratus Punch Side bilateral Resistance 2# Reps/Minutes x20 Shoulder Flex Supine Exercise Name Shoulder flex stretch Side bilateral Reps/Minutes x15 Comments PVC Sitting Exercises Cervical rotation Sitting Exercise Name Cervical rotation AROM Upper trap Sitting Exercise Name UT stretch - lateral flexion Side bilateral Standing Exercises Rows Standing Exercise Name Rows Side bilateral Resistance Lv 2 Reps/Minutes x20 IR Standing Exercise Name IR Side bilateral Resistance Lv 2 Reps/Minutes x20 ER Standing Exercise Name ER Side bilateral Resistance Lv 2 Reps/Minutes x20 Shoulder Extension Standing Exercise Name Extension Side bilateral Resistance Lv 2 Reps/Minutes x20 Manual Therapy Treatment Joint Mobilizations A/C Joint R A/C Direction Inf Grade III Body Position Supine GH Joint R GH Direction Inf Grade III Body Position Supine PT-OP-T Assessment and Plan Start: 07/16/22 17:01 Freq: Status: Active Protocol: Document 08/02/22 16:45 DCW (Rec: 08/02/22 17:32 DCW [id number]) Physical Therapy Assessment Goals Three Impairment R shoulder pain (6/10) limiting mobility. Impairment Sometimes can't move R shoulder overhead due to pain rated 6/10. UE Quickdash score 27 (20-39% impaired, score 20-39) Short Term Goal (STG) Patient will be able to reach 80% AROM overhead without pain , and decrease R shoulder with sleepinging. STG Duration 09/03/22 Aluminum Shingle Roofer Goal (LTG) Reduce pain with avg use of R arm (pain 2-3/10 moving slowly ) and improved function per UE Quickdash score 19 or less. LTG Duration 10/13/22 Two Impairment R shoulder decreased strength. Impairment R shoulder: flex, AB, ER, IR is 3+/5 (L shoulder: 5/5 except ER is 3/5). Short Term Goal (STG) Decreased pt perception of crepitus of R shoulder with overhead motions. STG Duration 09/03/22 Senior Living Goal (LTG) Be able to play volleyball using R hand to throw & hit volleyball, and do normal things (reach overhead to strike a volleyball, use a hammer or drill overhead, or reach ladder and motion of putting in a lightbulb without having to use the L hand. LTG Duration 10/17/22 One Impairment Lacks appropriate self care HEP Short Term Goal (STG) Pt will be educated in proper sitting/standing posture and best nighttime for pain management. Improve pt's R shoulder IR AROM. STG Duration 07/30/22 (07/23/22: Partiall met goal: education of posture) Senior Living Goal (LTG) Pt will be independent in a self care HEP of neck and R shoulder ex's. LTG Duration 10/17/22 Assessment Summary Assessment Pt was able to perform all activities today with minimal pain or discomfort. Responded well to joint mobs, continue to focus on shoulder strengthening and stabilization Physical Therapy Plan Frequency and Duration Frequency of Treatment 2x/Week Plan of Care Start Date 07/19/22 Plan of Care End Date 09/03/22 Therapeutic Interventions Therapeutic Interventions Home Exercise Program,Joint Mobilizations,Manual Therapy, Neuromuscular Re-education, Patient/Caregiver Education, Self-Care/Home Management,Soft Tissue Mobilization,Taping, Therapeutic Activities, Therapeutic Exercises Modalities Cold Pack/Ice Massage,Electric Stimulation,Hot Packs Next Visit Focus/Plan Next Note Type Treatment Note Next Visit Plan Education: use of modalities ( ice). R shoulder RC strengthening Check: JMT; biceps (ROM/ strength) Modalities to end as needed ( ice/IFES).
--- NOTE | 2022-08-05 16:45 | PT.OTN ---
Current Diagnoses Muscle weakness (generalized) (08/05/22) Other shoulder lesions, right shoulder (08/05/22) Abnormal posture (08/05/22) Physical Therapy Treatment Note PT-OP-A Visit Information Start: 07/16/22 17:01 Freq: Status: Active Protocol: Document 08/05/22 16:03 DCW (Rec: 08/05/22 16:45 DCW [id number]) Out-Patient Physical Therapy Visit Information Visit Information Visit Type Treatment Note Visit Start Time 16:03 Visit Stop Time 16:45 Total Visit Minutes 42 Visit Number 4 Evaluation Information Evaluation Date 07/19/22 Precautions Precautions L ankle injury receiving cortisone injections quarterly over 4 yrs, 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 PT-OP-B Current Condition Start: 07/16/22 17:01 Freq: Status: Active Protocol: Document 07/19/22 13:03 LRN (Rec: 07/19/22 14:37 LRN [id number]) Current Condition History of Current Condition Onset Date Dec 2021 Current Complaints Lacks R shoulder motion overhead and lacks strength History of Current Condition Pain exacerbated by doing a lot of overhead work at home. Acute injury to rotator cuff late Dec became noticeable playing volleyball and doing overhead work (wiring and lightbulb work) because of difficulty reaching overhead and maintaining strength (ex- overhand hits of volleyball). Two year hold on playing volleyball due to C19 Pandemic ; when returned to volleyball was unable to toss ball up and hit it overhead with R arm. During the 2 yrs hiatus from volleyball he did a lot of overhead work remodeling his house. He does aerobic exer daily ([place] track 80 minutes and stair-stepper) and he self K-tapes his R biceps due to tear/separation. Prior Treatments and Tests None for R shoulder. L ankle getting cortisone injections 3-4 times/year due to bad injury in his 's. Treatment Goals Patient/Caregiver Goals Pt goal: Be able to retain some ability to reach overhead with 80% ROM, Be able to play volleyball using R hand to throw & hit volleyball, Do normal things (reach overhead and put in a lightbulb or rewire a light without having to use the L hand) without crunching in the R shoulder. Prior Functional Status Baseline Function- ADL's Independent Baseline Function- Mobility Independent Baseline Function- Recreation/Hobbies Played volleyball 2-3x/week. Taking IBP propholactically. Baseline Function- Other Occasional pain in L shoulder 2-3 throwing volleyball up and hitting the ball. Uses K-tape on L shoulder, and starting using it on the R shoulder ~February for biceps. Current Functional Impairments (Reported) Functional Limitations- ADL's Debilitating reaching overhead and holding anything overhead . Has pain down his upper forearm with sleeping and on waking has throbbing in the R arm. 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 Functional Limitations- Recreation/ Volleyball play 2x/week (Wed, Hobbies Tue and sometimes weekends) Personal Factors Other Personal Factors That May Effect Plays volleyball 2-3x/week, Therapy/Recovery Hard of hearing, R hand dominant, arthritis. PT-OP-C Subjective Start: 07/16/22 17:01 Freq: Status: Active Protocol: Document 08/05/22 16:03 DCW (Rec: 08/05/22 16:45 DCW [id number]) OP-PT Subjective Patient Comments Patient Comments Pt notes he felt pretty good following his last session, I think it's getting better. Reports he was able to play volleyball last night, was able to do some overhead serves without any increased pain. PT-OP-E Functional Tests Start: 07/16/22 17:01 Freq: Status: Active Protocol: Document 07/19/22 13:03 LRN (Rec: 07/19/22 14:37 LRN [id number]) Functional Tests Apley's Scratch Test Action 1- Left Top of opp shoulder Action 1- Right Top of opp shoulder Action 2- Left C7 Action 2- Right C7 Action 3- Left L5-S1 interspace Action 3- Right Lateral border of sacrum PT-OP-H Neuro Start: 07/16/22 17:01 Freq: Status: Active Protocol: Document 07/19/22 13:03 LRN (Rec: 07/19/22 14:37 LRN [id number]) Sensation Evaluation Gross Sensation Gross Sensation WNL Comments Summary Comments Occasional numbness/throbbing in radial side of forearm and into the hand radial>ulnar side. Started ~Oct 2021. Occssionally occurred in past when sleeping on the arm wrong . Can come and go. PT-OP-J Posture/Palpation/Skin Start: 07/16/22 17:01 Freq: Status: Active Protocol: Document 07/19/22 13:03 LRN (Rec: 07/19/22 14:37 LRN [id number]) Posture Evaluation Position Standing Head/C-Spine Posture Forward Head T-Spine Posture Increased Kyphosis L-Spine Posture Decreased Lordosis Shoulder Posture (L) Elevated Scapula Posture (R) Rotated Down,(R) Depressed Arm Posture (R) Neutral Hip Posture (L) Flexed,(R) Flexed Comments Posture Comments R shoulder low, and retracted, stands R leg forward. Wears heavy above ankle high boots for ankle support. Palpation Assessment Location R posterior shoulder Palpation Location Teres Minor Palpation Findings Tenderness R shoulder Palpation Location R shoulder Infraspinatus, Teres Minor Palpation Findings Tenderness PT-OP-K Range of Motion Start: 07/16/22 17:01 Freq: Status: Active Protocol: Document 07/23/22 14:34 LRN (Rec: 07/23/22 17:13 LRN [id number]) Shoulder Goniometric Range of Motion Shoulder Right Passive Shoulder ROM WFL No Testing Position Supine Flexion 135 Abduction 64 External Rotation at 90 degrees 60 Abduction Internal Rotation 20 Comments Slight pain on return from flex (internal GHJ) Pure AB is with pain on top of shoulder. AB (scapular plane) is 170 with painful arc at 120 deg's. ER (w/arm in AB 60 deg's) - 45 deg's, IR (w/arm in AB 60 deg's) - 28 deg's. Left Passive Shoulder ROM WFL No Testing Position Supine Flexion 150 Abduction 108 Internal Rotation 40 Comments AB (scapular plane) is 180 deg 's. ER (w/arm in AB 60 deg's) - 90 deg's, IR (w/arm in AB 60 deg's) - 40 deg's. PT-OP-L Special Tests Start: 07/16/22 17:01 Freq: Status: Active Protocol: Document 07/23/22 14:34 LRN (Rec: 07/23/22 17:13 LRN [id number]) Special Tests Cervical Spine Special Tests Spurling's Test Test Results Negative Traction Comments Created pain in L medial scapula border. Foraminal Compression Test Results Negative Comments No change in UE sensation. PT-OP-M Strength Start: 07/16/22 17:01 Freq: Status: Active Protocol: Document 07/19/22 13:03 LRN (Rec: 07/19/22 14:37 LRN [id number]) Cervical Spine Strength Cervical Spine Manual Muscle Testing Testing Position Sitting Comments Generally 5/5 Shoulder Strength Shoulder Manual Muscle Testing Right Flexion 3+ Fair+ Abduction (C5) 3+ Fair+ External Rotation 3+ Fair+ Internal Rotation 3+ Fair+ Comments Strength is 5/5 except as indicated above. Left External Rotation 3 Fair Comments Strength is 5/5 except as indicated above. PT-OP-Q Treatments Start: 07/16/22 17:01 Freq: Status: Active Protocol: Document 08/05/22 16:03 DCW (Rec: 08/05/22 16:45 DCW [id number]) Cardio Equipment Upper Body Ergometer (UBE) Duration (Minutes) 5 Seat Position 12 Height 1.5 Therapeutic Exercises Sitting Exercises IR/ER Sitting Exercise Name Seated ER/IR in 90/90 Resistance 2.2# weighted ball Standing Exercises Rows Standing Exercise Name Rows Side bilateral Resistance Lv 3 Reps/Minutes x20 IR Standing Exercise Name IR Side bilateral Resistance Lv 3 Reps/Minutes x20 ER Standing Exercise Name ER Side bilateral Resistance Lv 3 Reps/Minutes x20 Shoulder Extension Standing Exercise Name Extension Side bilateral Resistance Lv 3 Reps/Minutes x20 Manual Therapy Treatment Joint Mobilizations Scapulothoracic Joint R ST Direction Lateral Grade III A/C Joint R A/C Direction Inf Grade III Body Position Supine GH Joint R GH Direction Inf Grade II Body Position Supine PT-OP-T Assessment and Plan Start: 07/16/22 17:01 Freq: Status: Active Protocol: Document 08/05/22 16:03 DCW (Rec: 08/05/22 16:45 DCW [id number]) Physical Therapy Assessment Goals Three Impairment R shoulder pain (6/10) limiting mobility. Impairment Sometimes can't move R shoulder overhead due to pain rated 6/10. UE Quickdash score 27 (20-39% impaired, score 20-39) Short Term Goal (STG) Patient will be able to reach 80% AROM overhead without pain , and decrease R shoulder with sleepinging. STG Duration 09/03/22 Residential Goal (LTG) Reduce pain with avg use of R arm (pain 2-3/10 moving slowly ) and improved function per UE Quickdash score 19 or less. LTG Duration 10/13/22 Two Impairment R shoulder decreased strength. Impairment R shoulder: flex, AB, ER, IR is 3+/5 (L shoulder: 5/5 except ER is 3/5). Short Term Goal (STG) Decreased pt perception of crepitus of R shoulder with overhead motions. STG Duration 09/03/22 Residential Goal (LTG) Be able to play volleyball using R hand to throw & hit volleyball, and do normal things (reach overhead to strike a volleyball, use a hammer or drill overhead, or reach ladder and motion of putting in a lightbulb without having to use the L hand. LTG Duration 10/17/22 One Impairment Lacks appropriate self care HEP Short Term Goal (STG) Pt will be educated in proper sitting/standing posture and best nighttime for pain management. Improve pt's R shoulder IR AROM. STG Duration 07/30/22 (07/23/22: Partiall met goal: education of posture) Material Flow Analyst Goal (LTG) Pt will be independent in a self care HEP of neck and R shoulder ex's. LTG Duration 10/17/22 Assessment Summary Assessment Pt increasing pain-free mobility and noting decreased crepitus. No longer experiencing numbness and pain that disturbs his sleep. Gave pt HEP today with T-band to continue to work toward improved r/c strength and stability. Physical Therapy Plan Frequency and Duration Frequency of Treatment 2x/Week Plan of Care Start Date 07/19/22 Plan of Care End Date 09/03/22 Therapeutic Interventions Therapeutic Interventions Home Exercise Program,Joint Mobilizations,Manual Therapy, Neuromuscular Re-education, Patient/Caregiver Education, Self-Care/Home Management,Soft Tissue Mobilization,Taping, Therapeutic Activities, Therapeutic Exercises Modalities Cold Pack/Ice Massage,Electric Stimulation,Hot Packs Next Visit Focus/Plan Next Note Type Treatment Note Next Visit Plan Education: use of modalities ( ice). R shoulder RC strengthening Check: JMT; biceps (ROM/ strength) Modalities to end as needed ( ice/IFES).
--- NOTE | 2022-08-12 17:45 | PT.OTN ---
Current Diagnoses Muscle weakness (generalized) (08/12/22) Other shoulder lesions, right shoulder (08/12/22) Abnormal posture (08/12/22) Physical Therapy Treatment Note PT-OP-A Visit Information Start: 07/16/22 17:01 Freq: Status: Active Protocol: Document 08/12/22 15:15 [facility]H (Rec: 08/12/22 17:43 AMH [id number]) Out-Patient Physical Therapy Visit Information Visit Information Visit Type Treatment Note Visit Start Time 15:15 Visit Stop Time 16:00 Total Visit Minutes 45 Visit Number 5 PT-OP-B Current Condition Start: 07/16/22 17:01 Freq: Status: Active Protocol: Document 07/19/22 13:03 LRN (Rec: 07/19/22 14:37 LRN [id number]) Current Condition History of Current Condition Onset Date Dec 2021 Current Complaints Lacks R shoulder motion overhead and lacks strength History of Current Condition Pain exacerbated by doing a lot of overhead work at home. Acute injury to rotator cuff late Dec became noticeable playing volleyball and doing overhead work (wiring and lightbulb work) because of difficulty reaching overhead and maintaining strength (ex- overhand hits of volleyball). Two year hold on playing volleyball due to C19 Pandemic ; when returned to vol[employer]ball was unable to toss ball up and hit it overhead with R arm. During the 2 yrs hiatus from volleyball he did a lot of overhead work remodeling his house. He does aerobic exer daily ([place] track 80 minutes and stair-stepper) and he self K-tapes his R biceps due to tear/separation. Prior Treatments and Tests None for R shoulder. L ankle getting cortisone injections 3-4 times/year due to bad injury in his 20's. Treatment Goals Patient/Caregiver Goals Pt goal: Be able to retain some ability to reach overhead with 80% ROM, Be able to play volleyball using R hand to throw & hit volleyball, Do normal things (reach overhead and put in a lightbulb or rewire a light without having to use the L hand) without crunching in the R shoulder. Prior Functional Status Baseline Function- ADL's Independent Baseline Function- Mobility Independent Baseline Function- Recreation/Hobbies Played volleyball 2-3x/week. Taking IBP propholactically. Baseline Function- Other Occasional pain in L shoulder 2-3/10 throwing volleyball up and hitting the ball. Uses K-tape on L shoulder, and starting using it on the R shoulder ~February for biceps. Current Functional Impairments (Reported) Functional Limitations- ADL's Debilitating reaching overhead and holding anything overhead . Has pain down his upper forearm with sleeping and on waking has throbbing in the R arm. 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 Functional Limitations- Recreation/ Volleyball play 2x/week (Wed, Hobbies Tue and sometimes weekends) Personal Factors Other Personal Factors That May Effect Plays volleyball 2-3x/week, Therapy/Recovery Hard of hearing, R hand dominant, arthritis. PT-OP-C Subjective Start: 07/16/22 17:01 Freq: Status: Active Protocol: Document 08/12/22 15:15 [facility] (Rec: 08/12/22 15:44 AMH [id number]) OP-PT Subjective Patient Comments Patient Comments pt notes he continues to improve, pain levels are lower . He has not gone back to over head reaching with ADL's yet, he is using KT tape for volleyball and it helps. PT-OP-E Functional Tests Start: 07/16/22 17:01 Freq: Status: Active Protocol: Document 07/19/22 13:03 LRN (Rec: 07/19/22 14:37 LRN [id number]) Functional Tests Apley's Scratch Test Action 1- Left Top of opp shoulder Action 1- Right Top of opp shoulder Action 2- Left C7 Action 2- Right C7 Action 3- Left L5-S1 interspace Action 3- Right Lateral border of sacrum PT-OP-H Neuro Start: 07/16/22 17:01 Freq: Status: Active Protocol: Document 07/19/22 13:03 LRN (Rec: 07/19/22 14:37 LRN [id number]) Sensation Evaluation Gross Sensation Gross Sensation WNL Comments Summary Comments Occasional numbness/throbbing in radial side of forearm and into the hand radial>ulnar side. Started ~Oct 2021. Occssionally occurred in past when sleeping on the arm wrong . Can come and go. PT-OP-J Posture/Palpation/Skin Start: 07/16/22 17:01 Freq: Status: Active Protocol: Document 07/19/22 13:03 LRN (Rec: 07/19/22 14:37 LRN [id number]) Posture Evaluation Position Standing Head/C-Spine Posture Forward Head T-Spine Posture Increased Kyphosis L-Spine Posture Decreased Lordosis Shoulder Posture (L) Elevated Scapula Posture (R) Rotated Down,(R) Depressed Arm Posture (R) Neutral Hip Posture (L) Flexed,(R) Flexed Comments Posture Comments R shoulder low, and retracted, stands R leg forward. Wears heavy above ankle high boots for ankle support. Palpation Assessment Location R posterior shoulder Palpation Location Teres Minor Palpation Findings Tenderness R shoulder Palpation Location R shoulder Infraspinatus, Teres Minor Palpation Findings Tenderness PT-OP-K Range of Motion Start: 07/16/22 17:01 Freq: Status: Active Protocol: Document 07/23/22 14:34 LRN (Rec: 07/23/22 17:13 LRN [id number]) Shoulder Goniometric Range of Motion Shoulder Right Passive Shoulder ROM WFL No Testing Position Supine Flexion 135 Abduction 64 External Rotation at 90 degrees 60 Abduction Internal Rotation 20 Comments Slight pain on return from flex (internal GHJ) Pure AB is with pain on top of shoulder. AB (scapular plane) is 170 with painful arc at 120 deg's. ER (w/arm in AB 60 deg's) - 45 deg's, IR (w/arm in AB 60 deg's) - 28 deg's. Left Passive Shoulder ROM WFL No Testing Position Supine Flexion 150 Abduction 108 Internal Rotation 40 Comments AB (scapular plane) is 180 deg 's. ER (w/arm in AB 60 deg's) - 90 deg's, IR (w/arm in AB 60 deg's) - 40 deg's. PT-OP-L Special Tests Start: 07/16/22 17:01 Freq: Status: Active Protocol: Document 07/23/22 14:34 LRN (Rec: 07/23/22 17:13 LRN [id number]) Special Tests Cervical Spine Special Tests Spurling's Test Test Results Negative Traction Comments Created pain in L medial scapula border. Foraminal Compression Test Results Negative Comments No change in UE sensation. PT-OP-M Strength Start: 07/16/22 17:01 Freq: Status: Active Protocol: Document 07/19/22 13:03 LRN (Rec: 07/19/22 14:37 LRN [id number]) Cervical Spine Strength Cervical Spine Manual Muscle Testing Testing Position Sitting Comments Generally 5/5 Shoulder Strength Shoulder Manual Muscle Testing Right Flexion 3+ Fair+ Abduction (C5) 3+ Fair+ External Rotation 3+ Fair+ Internal Rotation 3+ Fair+ Comments Strength is 5/5 except as indicated above. Left External Rotation 3 Fair Comments Strength is 5/5 except as indicated above. PT-OP-Q Treatments Start: 07/16/22 17:01 Freq: Status: Active Protocol: Document 08/12/22 15:15 [facility] (Rec: 08/12/22 15:44 [facility] [id number]) Cardio Equipment Upper Body Ergometer (UBE) Duration (Minutes) 5 Seat Position 12 Height 1.5 Therapeutic Exercises Supine Exercises Serratus Punch Supine Exercise Name Serratus Punch Side bilateral Resistance 2# Reps/Minutes x20 Standing Exercises Rows Standing Exercise Name Rows Side bilateral Resistance Lv 3 Reps/Minutes x20 IR Standing Exercise Name IR Side bilateral Resistance Lv 3 Reps/Minutes x20 ER Standing Exercise Name ER Side bilateral Resistance Lv 3 Reps/Minutes x20 Shoulder Extension Standing Exercise Name Extension Side bilateral Resistance Lv 3 Reps/Minutes x20 Manual Therapy Treatment Joint Mobilizations sidelying scapular mobilizations Comments worked on pec minor stretching and mobilizing the scapula into upward rotation GH Joint R GH Direction Inf Grade II Body Position Supine PT-OP-T Assessment and Plan Start: 07/16/22 17:01 Freq: Status: Active Protocol: Document 08/12/22 15:15 [facility] (Rec: 08/12/22 17:43 [facility] [id number]) Physical Therapy Assessment Assessment Summary Assessment pt appears to be progressing well and is working on his exercises at home. He is still tight in pec minor with limited mobility into scapular upward rotation Physical Therapy Plan Frequency and Duration Frequency of Treatment 2x/Week Plan of Care Start Date 07/19/22 Plan of Care End Date 09/03/22 Therapeutic Interventions Therapeutic Interventions Home Exercise Program,Joint Mobilizations,Manual Therapy, Neuromuscular Re-education, Patient/Caregiver Education, Self-Care/Home Management,Soft Tissue Mobilization,Taping, Therapeutic Activities, Therapeutic Exercises Modalities Cold Pack/Ice Massage,Electric Stimulation,Hot Packs Next Visit Focus/Plan Next Note Type Treatment Note Next Visit Plan Education: use of modalities ( ice). R shoulder RC strengthening Check: JMT; biceps (ROM/ strength) Modalities to end as needed ( ice/IFES).
--- NOTE | 2022-08-19 17:29 | PT.OTN ---
Current Diagnoses Muscle weakness (generalized) (08/19/22) Other shoulder lesions, right shoulder (08/19/22) Abnormal posture (08/19/22) Physical Therapy Treatment Note PT-OP-A Visit Information Start: 07/16/22 17:01 Freq: Status: Active Protocol: Document 08/19/22 15:19 [facility] (Rec: 08/19/22 15:43 [facility] [id number]) Out-Patient Physical Therapy Visit Information Visit Information Visit Start Time 15:15 Visit Stop Time 16:00 Total Visit Minutes 45 Visit Number 6 PT-OP-B Current Condition Start: 07/16/22 17:01 Freq: Status: Active Protocol: Document 07/19/22 13:03 LRN (Rec: 07/19/22 14:37 LRN [id number]) Current Condition History of Current Condition Onset Date Dec 2021 Current Complaints Lacks R shoulder motion overhead and lacks strength History of Current Condition Pain exacerbated by doing a lot of overhead work at home. Acute injury to rotator cuff late Dec became noticeable playing volleyball and doing overhead work (wiring and lightbulb work) because of difficulty reaching overhead and maintaining strength (ex- overhand hits of volleyball). Two year hold on playing volleyball due to C19 Pandemic ; when returned to [employer]ipe[employer]ball was unable to toss ball up and hit it overhead with R arm. During the 2 yrs hiatus from volleyball he did a lot of overhead work remodeling his house. He does aerobic exer daily ([place] track 80 minutes and stair-stepper) and he self K-tapes his R biceps due to tear/separation. Prior Treatments and Tests None for R shoulder. L ankle getting cortisone injections 3-4 times/year due to bad injury in his 20's. Treatment Goals Patient/Caregiver Goals Pt goal: Be able to retain some ability to reach overhead with 80% ROM, Be able to play volleyball using R hand to throw & hit volleyball, Do normal things (reach overhead and put in a lightbulb or rewire a light without having to use the L hand) without crunching in the R shoulder. Prior Functional Status Baseline Function- ADL's Independent Baseline Function- Mobility Independent Baseline Function- Recreation/Hobbies Played volleyball 2-3x/week. Taking IBP propholactically. Baseline Function- Other Occasional pain in L shoulder 2-3/ throwing volleyball up and hitting the ball. Uses K-tape on L shoulder, and starting using it on the R shoulder ~February for biceps. Current Functional Impairments (Reported) Functional Limitations- ADL's Debilitating reaching overhead and holding anything overhead . Has pain down his upper forearm with sleeping and on waking has throbbing in the R arm. 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 Functional Limitations- Recreation/ Volleyball play 2x/week (Wed, Hobbies Tue and sometimes weekends) Personal Factors Other Personal Factors That May Effect Plays volleyball 2-3x/week, Therapy/Recovery Hard of hearing, R hand dominant, arthritis. PT-OP-C Subjective Start: 07/16/22 17:01 Freq: Status: Active Protocol: Document 08/19/22 15:19 [facility] (Rec: 08/19/22 15:43 [facility] [id number]) OP-PT Subjective Patient Comments Patient Comments pt reports he plays volleyball tomorrow afternoon. He doesn' t have kinesiotape on today and wants to try exercises out without it PT-OP-E Functional Tests Start: 07/16/22 17:01 Freq: Status: Active Protocol: Document 07/19/22 13:03 LRN (Rec: 07/19/22 14:37 LRN [id number]) Functional Tests Apley's Scratch Test Action 1- Left Top of opp shoulder Action 1- Right Top of opp shoulder Action 2- Left C7 Action 2- Right C7 Action 3- Left L5-S1 interspace Action 3- Right Lateral border of sacrum PT-OP-H Neuro Start: 07/16/22 17:01 Freq: Status: Active Protocol: Document 07/19/22 13:03 LRN (Rec: 07/19/22 14:37 LRN [id number]) Sensation Evaluation Gross Sensation Gross Sensation WNL Comments Summary Comments Occasional numbness/throbbing in radial side of forearm and into the hand radial>ulnar side. Started ~Oct 2021. Occssionally occurred in past when sleeping on the arm wrong . Can come and go. PT-OP-J Posture/Palpation/Skin Start: 07/16/22 17:01 Freq: Status: Active Protocol: Document 07/19/22 13:03 LRN (Rec: 07/19/22 14:37 LRN [id number]) Posture Evaluation Position Standing Head/C-Spine Posture Forward Head T-Spine Posture Increased Kyphosis L-Spine Posture Decreased Lordosis Shoulder Posture (L) Elevated Scapula Posture (R) Rotated Down,(R) Depressed Arm Posture (R) Neutral Hip Posture (L) Flexed,(R) Flexed Comments Posture Comments R shoulder low, and retracted, stands R leg forward. Wears heavy above ankle high boots for ankle support. Palpation Assessment Location R posterior shoulder Palpation Location Teres Minor Palpation Findings Tenderness R shoulder Palpation Location R shoulder Infraspinatus, Teres Minor Palpation Findings Tenderness PT-OP-K Range of Motion Start: 07/16/22 17:01 Freq: Status: Active Protocol: Document 07/23/22 14:34 LRN (Rec: 07/23/22 17:13 LRN [id number]) Shoulder Goniometric Range of Motion Shoulder Right Passive Shoulder ROM WFL No Testing Position Supine Flexion 135 Abduction 64 External Rotation at 90 degrees 60 Abduction Internal Rotation 20 Comments Slight pain on return from flex (internal GHJ) Pure AB is with pain on top of shoulder. AB (scapular plane) is 170 with painful arc at 120 deg's. ER (w/arm in AB 60 deg's) - 45 deg's, IR (w/arm in AB 60 deg's) - 28 deg's. Left Passive Shoulder ROM WFL No Testing Position Supine Flexion 150 Abduction 108 Internal Rotation 40 Comments AB (scapular plane) is 180 deg 's. ER (w/arm in AB 60 deg's) - 90 deg's, IR (w/arm in AB 60 deg's) - 40 deg's. PT-OP-L Special Tests Start: 07/16/22 17:01 Freq: Status: Active Protocol: Document 07/23/22 14:34 LRN (Rec: 07/23/22 17:13 LR [id number]) Special Tests Cervical Spine Special Tests Spurling's Test Test Results Negative Traction Comments Created pain in L medial scapula border. Foraminal Compression Test Results Negative Comments No change in UE sensation. PT-OP-M Strength Start: 07/16/22 17:01 Freq: Status: Active Protocol: Document 07/19/22 13:03 LRN (Rec: 07/19/22 14:37 LRN [id number]) Cervical Spine Strength Cervical Spine Manual Muscle Testing Testing Position Sitting Comments Generally 5/5 Shoulder Strength Shoulder Manual Muscle Testing Right Flexion 3+ Fair+ Abduction (C5) 3+ Fair+ External Rotation 3+ Fair+ Internal Rotation 3+ Fair+ Comments Strength is 5/5 except as indicated above. Left External Rotation 3 Fair Comments Strength is 5/5 except as indicated above. PT-OP-Q Treatments Start: 07/16/22 17:01 Freq: Status: Active Protocol: Document 08/19/22 15:19 [facility] (Rec: 08/19/22 15:43 AM[facility] [id number]) Cardio Equipment Upper Body Ergometer (UBE) Duration (Minutes) 5 Seat Position 12 Height 1.5 Therapeutic Exercises Supine Exercises Serratus Punch Supine Exercise Name Serratus Punch Side bilateral Resistance 2# Reps/Minutes x20 Standing Exercises Rows Standing Exercise Name Rows Side bilateral Resistance Lv 3 Reps/Minutes x20 IR Standing Exercise Name IR Side bilateral Resistance Lv 3 Reps/Minutes x20 ER Standing Exercise Name ER Side bilateral Resistance Lv 3 Reps/Minutes x20 Shoulder Extension Standing Exercise Name Extension Side bilateral Resistance Lv 3 Reps/Minutes x20 Manual Therapy Treatment Joint Mobilizations sidelying scapular mobilizations Comments worked on pec minor stretching and mobilizing the scapula into upward rotation PT-OP-T Assessment and Plan Start: 07/16/22 17:01 Freq: Status: Active Protocol: Document 08/19/22 15:19 [facility] (Rec: 08/19/22 15:43 [facility] [id number]) Physical Therapy Assessment Assessment Summary Assessment Nicholas is tolerating exercises well, he needs verbal cues for shoulder placement with shoulder ER/IR, encouraged continued Pec minor stretching for home. He is doing really well warming up his shoulder before playing volleyball and he notes this is very helpful for him Physical Therapy Plan Frequency and Duration Frequency of Treatment 2x/Week Plan of Care Start Date 07/19/22 Plan of Care End Date 09/03/22 Therapeutic Interventions Therapeutic Interventions Home Exercise Program,Joint Mobilizations,Manual Therapy, Neuromuscular Re-education, Patient/Caregiver Education, Self-Care/Home Management,Soft Tissue Mobilization,Taping, Therapeutic Activities, Therapeutic Exercises Modalities Cold Pack/Ice Massage,Electric Stimulation,Hot Packs Next Visit Focus/Plan Next Note Type Treatment Note Next Visit Plan Education: use of modalities ( ice). R shoulder RC strengthening Check: JMT; biceps (ROM/ strength) Modalities to end as needed ( ice/IFES).
--- NOTE | 2022-08-24 16:22 | PT.OTN ---
Current Diagnoses Muscle weakness (generalized) (08/24/22) Other shoulder lesions, right shoulder (08/24/22) Abnormal posture (08/24/22) Physical Therapy Treatment Note PT-OP-A Visit Information Start: 07/16/22 17:01 Freq: Status: Active Protocol: Document 08/24/22 13:02 LRN (Rec: 08/24/22 13:45 LRN [id number]) Out-Patient Physical Therapy Visit Information Visit Information Visit Type Treatment Note Visit Start Time 13:02 Visit Stop Time 13:42 Total Visit Minutes 40 Visit Number 7 Evaluation Information Evaluation Date 07/19/22 Precautions Precautions L ankle injury receiving cortisone injections quarterly over 4 yrs, 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 PT-OP-B Current Condition Start: 07/16/22 17:01 Freq: Status: Active Protocol: Document 07/19/22 13:03 LRN (Rec: 07/19/22 14:37 LRN [id number]) Current Condition History of Current Condition Onset Date Dec 2021 Current Complaints Lacks R shoulder motion overhead and lacks strength History of Current Condition Pain exacerbated by doing a lot of overhead work at home. Acute injury to rotator cuff late Dec became noticeable playing volleyball and doing overhead work (wiring and lightbulb work) because of difficulty reaching overhead and maintaining strength (ex- overhand hits of volleyball). Two year hold on playing volleyball due to C19 Pandemic ; when returned to volleyball was unable to toss ball up and hit it overhead with R arm. During the 2 yrs hiatus from volleyball he did a lot of overhead work remodeling his house. He does aerobic exer daily ([place] track 80 minutes and stair-stepper) and he self K-tapes his R biceps due to tear/separation. Prior Treatments and Tests None for R shoulder. L ankle getting cortisone injections 3-4 times/year due to bad injury in his 's. Treatment Goals Patient/Caregiver Goals Pt goal: Be able to retain some ability to reach overhead with 80% ROM, Be able to play volleyball using R hand to throw & hit volleyball, Do normal things (reach overhead and put in a lightbulb or rewire a light without having to use the L hand) without crunching in the R shoulder. Prior Functional Status Baseline Function- ADL's Independent Baseline Function- Mobility Independent Baseline Function- Recreation/Hobbies Played volleyball 2-3x/week. Taking IBP propholactically. Baseline Function- Other Occasional pain in L shoulder 2-3 throwing volleyball up and hitting the ball. Uses K-tape on L shoulder, and starting using it on the R shoulder ~February for biceps. Current Functional Impairments (Reported) Functional Limitations- ADL's Debilitating reaching overhead and holding anything overhead . Has pain down his upper forearm with sleeping and on waking has throbbing in the R arm. 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 Functional Limitations- Recreation/ Volleyball play 2x/week (Tue, Hobbies Tue and sometimes weekends) Personal Factors Other Personal Factors That May Effect Plays volleyball 2-3x/week, Therapy/Recovery Hard of hearing, R hand dominant, arthritis. PT-OP-C Subjective Start: 07/16/22 17:01 Freq: Status: Active Protocol: Document 08/24/22 13:02 LRN (Rec: 08/24/22 13:45 LRN [id number]) OP-PT Subjective Patient Comments Patient Comments Has had less numbness and occasionally wakes up in pain in the R shoulder. No waking with numbness in the lower arm . Doing well since last treatment. Was taped for volleyball and hasn't had any increased sharp pain in R shoulder. Reaching up to deal with a lightbulb, that is when he hears the shoulder and sometimes comes with sharp pain. PT-OP-E Functional Tests Start: 07/16/22 17:01 Freq: Status: Active Protocol: Document 07/19/22 13:03 LRN (Rec: 07/19/22 14:37 LRN [id number]) Functional Tests Apley's Scratch Test Action 1- Left Top of opp shoulder Action 1- Right Top of opp shoulder Action 2- Left C7 Action 2- Right C7 Action 3- Left L5-S1 interspace Action 3- Right Lateral border of sacrum PT-OP-H Neuro Start: 07/16/22 17:01 Freq: Status: Active Protocol: Document 07/19/22 13:03 LRN (Rec: 07/19/22 14:37 LRN [id number]) Sensation Evaluation Gross Sensation Gross Sensation WNL Comments Summary Comments Occasional numbness/throbbing in radial side of forearm and into the hand radial>ulnar side. Started ~Oct 2021. Occssionally occurred in past when sleeping on the arm wrong . Can come and go. PT-OP-J Posture/Palpation/Skin Start: 07/16/22 17:01 Freq: Status: Active Protocol: Document 07/19/22 13:03 LRN (Rec: 07/19/22 14:37 LR [id number]) Posture Evaluation Position Standing Head/C-Spine Posture Forward Head T-Spine Posture Increased Kyphosis L-Spine Posture Decreased Lordosis Shoulder Posture (L) Elevated Scapula Posture (R) Rotated Down,(R) Depressed Arm Posture (R) Neutral Hip Posture (L) Flexed,(R) Flexed Comments Posture Comments R shoulder low, and retracted, stands R leg forward. Wears heavy above ankle high boots for ankle support. Palpation Assessment Location R posterior shoulder Palpation Location Teres Minor Palpation Findings Tenderness R shoulder Palpation Location R shoulder Infraspinatus, Teres Minor Palpation Findings Tenderness PT-OP-K Range of Motion Start: 07/16/22 17:01 Freq: Status: Active Protocol: Document 07/23/22 14:34 LRN (Rec: 07/23/22 17:13 LRN [id number]) Shoulder Goniometric Range of Motion Shoulder Right Passive Shoulder ROM WFL No Testing Position Supine Flexion 135 Abduction 64 External Rotation at 90 degrees 60 Abduction Internal Rotation 20 Comments Slight pain on return from flex (internal GHJ) Pure AB is with pain on top of shoulder. AB (scapular plane) is 170 with painful arc at 120 deg's. ER (w/arm in AB 60 deg's) - 45 deg's, IR (w/arm in AB 60 deg's) - 28 deg's. Left Passive Shoulder ROM WFL No Testing Position Supine Flexion 150 Abduction 108 Internal Rotation 40 Comments AB (scapular plane) is 180 deg 's. ER (w/arm in AB 60 deg's) - 90 deg's, IR (w/arm in AB 60 deg's) - 40 deg's. PT-OP-L Special Tests Start: 08/26/22 17:01 Freq: Status: Active Protocol: Document 07/23/22 14:34 LRN (Rec: 07/23/22 17:13 LRN [id number]) Special Tests Cervical Spine Special Tests Spurling's Test Test Results Negative Traction Comments Created pain in L medial scapula border. Foraminal Compression Test Results Negative Comments No change in UE sensation. PT-OP-M Strength Start: 07/16/22 17:01 Freq: Status: Active Protocol: Document 07/19/22 13:03 LRN (Rec: 07/19/22 14:37 LRN [id number]) Cervical Spine Strength Cervical Spine Manual Muscle Testing Testing Position Sitting Comments Generally 5/5 Shoulder Strength Shoulder Manual Muscle Testing Right Flexion 3+ Fair+ Abduction (C5) 3+ Fair+ External Rotation 3+ Fair+ Internal Rotation 3+ Fair+ Comments Strength is 5/5 except as indicated above. Left External Rotation 3 Fair Comments Strength is 5/5 except as indicated above. PT-OP-Q Treatments Start: 07/16/22 17:01 Freq: Status: Active Protocol: Document 08/24/22 13:02 LRN (Rec: 08/24/22 13:45 LRN [id number]) Cardio Equipment Upper Body Ergometer (UBE) Duration (Minutes) 6 Seat Position 12 Height 1.5 Therapeutic Exercises Standing Exercises IR Standing Exercise Name IR Side bilateral Resistance Lv 3 Reps/Minutes 15x 2 ER Standing Exercise Name ER Side bilateral Resistance Lv 3 Reps/Minutes 15x 2 Shoulder Extension Standing Exercise Name Extension Side bilateral Resistance Lv 3 Reps/Minutes 15x Manual Therapy Treatment Joint Mobilizations sidelying scapular mobilizations Comments worked on pec minor stretching and mobilizing the scapula into upward rotation Scapulothoracic Joint R ST Direction Lateral Grade III A/C Joint R A/C Direction Inf Grade III Body Position Supine GH Joint R GH Direction Inf Grade II Body Position Supine Self-Care/Home Management Treatment Education Patient Education Pain Management Other Education Discussed use of cold pack at home for pain management and recomended use of cold pack after activities or exercise, focus on not waiting until his R shoulder hurts. PT-OP-T Assessment and Plan Start: 07/16/22 17:01 Freq: Status: Active Protocol: Document 08/24/22 13:02 LRN (Rec: 08/24/22 13:45 LRN [id number]) Physical Therapy Assessment Goals Three Impairment R shoulder pain (6/10) limiting mobility. Impairment Sometimes can't move R shoulder overhead due to pain rated 6/10. UE Quickdash score 27 (20-39% impaired, score 20-39) Short Term Goal (STG) Patient will be able to reach 80% AROM overhead without pain , and decrease R shoulder with sleeping. 08/24/22: Not waking with pain . No numbness when waking up. Pain in R shoulder is occasional and not severe; therefore much less sleep interruption. STG Duration 09/03/22 (08/24/22: Sleeping improved) Mcfp Goal (LTG) Reduce pain with avg use of R arm (pain 2-3/10 moving slowly ) and improved function per UE Quickdash score 19 or less. 08/24/22: Much less pain with use of R arm (pain reaching overhead is 2-3/10). LTG Duration 10/13/22 (08/24/22: Pain part of goal met) Two Impairment R shoulder decreased strength. Impairment R shoulder: flex, AB, ER, IR is 3+/5 (L shoulder: 5/5 except ER is 3/5). Short Term Goal (STG) Decreased pt perception of crepitus of R shoulder with overhead motions. 08/24/22: Reduced crepitus and reduced in pain. STG Duration 09/03/22 (08/24/22: GOAL MET) Mcfp Goal (LTG) Be able to play volleyball using R hand to throw & hit volleyball, and do normal things (reach overhead to strike a volleyball, use a hammer or drill overhead, or reach ladder and motion of putting in a lightbulb without having to use the L hand. 08/24/22: Serving underhand and sometimes hits ball overhead. Able to hit overhead but is painful. Painful to reach overhead and tighten down lightbulb. LTG Duration 10/17/22 (08/24/22: Improving , can sometimes hit volleyball overhead) One Impairment Lacks appropriate self care HEP Short Term Goal (STG) Pt will be educated in proper sitting/standing posture and best nighttime for pain management. Improve pt's R shoulder IR AROM. 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 STG Duration 07/30/22 (08/24/22: MET GOAL) Mcfp Goal (LTG) Pt will be independent in a self care HEP of neck and R shoulder ex's. 08/05/22: HEP: shoulder strengthening ex's LTG Duration 10/17/22 Assessment Summary Assessment Pt not using modalities (cold packs) at home, but is more knowledgeable after discussion and education for use of modality; therefore pt willing to use after exercise/ activity. Pt appears to be sleeping better and without pain. He has pain with reaching overhead, but % pain with reaching overhead was not assessed. Physical Therapy Plan Frequency and Duration Frequency of Treatment 2x/Week Plan of Care Start Date 07/19/22 Plan of Care End Date 09/03/22 Next Visit Focus/Plan Next Note Type Treatment Note Next Visit Plan Assess UE QuickDASH. Assess % pain with reaching overhead (addressing STG #3). R shoulder RC strengthening. Check: JMT; biceps (ROM/ strength). Modalities to end as needed ( ice/IFES).
--- NOTE | 2022-08-27 15:32 | PT.OTN ---
Current Diagnoses Muscle weakness (generalized) (08/27/22) Other shoulder lesions, right shoulder (08/27/22) Abnormal posture (08/27/22) Physical Therapy Treatment Note PT-OP-A Visit Information Start: 07/16/22 17:01 Freq: Status: Active Protocol: Document 08/27/22 13:03 LRN (Rec: 08/27/22 15:22 LRN [id number]) Out-Patient Physical Therapy Visit Information Visit Information Visit Type Progress Note Visit Start Time 13:03 Visit Stop Time 13:52 Total Visit Minutes 49 Visit Number 8 Evaluation Information Evaluation Date 07/19/22 Precautions Precautions L ankle injury receiving cortisone injections quarterly over 4 yrs, 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 PT-OP-B Current Condition Start: 07/16/22 17:01 Freq: Status: Active Protocol: Document 07/19/22 13:03 LRN (Rec: 07/19/22 14:37 LRN [id number]) Current Condition History of Current Condition Onset Date Dec 2021 Current Complaints Lacks R shoulder motion overhead and lacks strength History of Current Condition Pain exacerbated by doing a lot of overhead work at home. Acute injury to rotator cuff late Dec became noticeable playing volleyball and doing overhead work (wiring and lightbulb work) because of difficulty reaching overhead and maintaining strength (ex- overhand hits of volleyball). Two year hold on playing volleyball due to C19 Pandemic ; when returned to volleyball was unable to toss ball up and hit it overhead with R arm. During the 2 yrs hiatus from volleyball he did a lot of overhead work remodeling his house. He does aerobic exer daily ([place] track 80 minutes and stair-stepper) and he self K-tapes his R biceps due to tear/separation. Prior Treatments and Tests None for R shoulder. L ankle getting cortisone injections 3-4 times/year due to bad injury in his 's. Treatment Goals Patient/Caregiver Goals Pt goal: Be able to retain some ability to reach overhead with 80% ROM, Be able to play volleyball using R hand to throw & hit volleyball, Do normal things (reach overhead and put in a lightbulb or rewire a light without having to use the L hand) without crunching in the R shoulder. Prior Functional Status Baseline Function- ADL's Independent Baseline Function- Mobility Independent Baseline Function- Recreation/Hobbies Played volleyball 2-3x/week. Taking IBP propholactically. Baseline Function- Other Occasional pain in L shoulder 2-3 throwing volleyball up and hitting the ball. Uses K-tape on L shoulder, and starting using it on the R shoulder ~February for biceps. Current Functional Impairments (Reported) Functional Limitations- ADL's Debilitating reaching overhead and holding anything overhead . Has pain down his upper forearm with sleeping and on waking has throbbing in the R arm. 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 Functional Limitations- Recreation/ Volleyball play 2x/week (Wed, Hobbies Tue and sometimes weekends) Personal Factors Other Personal Factors That May Effect Plays volleyball 2-3x/week, Therapy/Recovery Hard of hearing, R hand dominant, arthritis. PT-OP-C Subjective Start: 07/16/22 17:01 Freq: Status: Active Protocol: Document 08/27/22 13:03 LRN (Rec: 08/27/22 15:22 LRN [id number]) OP-PT Subjective Patient Comments Patient Comments Does ex's with minimal amt of discomfort. Sore in biceps from overworking it yesterday. Sharp pain with reaching overhead, sharp pain in R anterior pec minor/major. Pt reports what change in sensation in hands are more due to carpel tunnel. Patient Questionnaires Quick Dash- Upper Extremity Quick Dash UE Score 9.09 Quick Dash UE Impairment 1 to 19% Impaired (Score 1-19) PT-OP-E Functional Tests Start: 07/16/22 17:01 Freq: Status: Active Protocol: Document 08/27/22 13:03 LRN (Rec: 08/27/22 15:22 LRN [id number]) Functional Tests Apley's Scratch Test Action 1- Left Top of opp shoulder Action 1- Right Top of opp shoulder Action 2- Left T2 Action 2- Right T2 Action 3- Left L4 Action 3- Right L5 PT-OP-H Neuro Start: 07/16/22 17:01 Freq: Status: Active Protocol: Document 07/19/22 13:03 LRN (Rec: 07/19/22 14:37 LRN [id number]) Sensation Evaluation Gross Sensation Gross Sensation WNL Comments Summary Comments Occasional numbness/throbbing in radial side of forearm and into the hand radial>ulnar side. Started ~Oct 2021. Occssionally occurred in past when sleeping on the arm wrong . Can come and go. PT-OP-J Posture/Palpation/Skin Start: 07/16/22 17:01 Freq: Status: Active Protocol: Document 07/19/22 13:03 LRN (Rec: 07/19/22 14:37 LRN [id number]) Posture Evaluation Position Standing Head/C-Spine Posture Forward Head T-Spine Posture Increased Kyphosis L-Spine Posture Decreased Lordosis Shoulder Posture (L) Elevated Scapula Posture (R) Rotated Down,(R) Depressed Arm Posture (R) Neutral Hip Posture (L) Flexed,(R) Flexed Comments Posture Comments R shoulder low, and retracted, stands R leg forward. Wears heavy above ankle high boots for ankle support. Palpation Assessment Location R posterior shoulder Palpation Location Teres Minor Palpation Findings Tenderness R shoulder Palpation Location R shoulder Infraspinatus, Teres Minor Palpation Findings Tenderness PT-OP-K Range of Motion Start: 07/16/22 17:01 Freq: Status: Active Protocol: Document 08/27/22 13:03 LRN (Rec: 08/27/22 15:22 LRN [id number]) Shoulder Goniometric Range of Motion Shoulder Right Active Testing Position Sitting Flexion 135 Extension 60 Abduction 126 External Rotation at 0 degrees Abduction 72 Internal Rotation Behind Back (text) L5 Comments Behind head T2, discomfort from Biceps/anterior chest. ] ROM taken w/o RC K-taping. PT-OP-L Special Tests Start: 07/16/22 17:01 Freq: Status: Active Protocol: Document 07/23/22 14:34 LRN (Rec: 07/23/22 17:13 LRN [id number]) Special Tests Cervical Spine Special Tests Spurling's Test Test Results Negative Traction Comments Created pain in L medial scapula border. Foraminal Compression Test Results Negative Comments No change in UE sensation. PT-OP-M Strength Start: 07/16/22 17:01 Freq: Status: Active Protocol: Document 07/19/22 13:03 LRN (Rec: 07/19/22 14:37 [facility] [id number]) Cervical Spine Strength Cervical Spine Manual Muscle Testing Testing Position Sitting Comments Generally 5/5 Shoulder Strength Shoulder Manual Muscle Testing Right Flexion 3+ Fair+ Abduction (C5) 3+ Fair+ External Rotation 3+ Fair+ Internal Rotation 3+ Fair+ Comments Strength is 5/5 except as indicated above. Left External Rotation 3 Fair Comments Strength is 5/5 except as indicated above. PT-OP-Q Treatments Start: 07/16/22 17:01 Freq: Status: Active Protocol: Document 08/27/22 13:03 LRN (Rec: 08/27/22 15:22 [facility] [id number]) Cardio Equipment Upper Body Ergometer (UBE) Duration (Minutes) 7 Seat Position 12 Height 1.5 Therapeutic Exercises Supine Exercises Serratus Punch Supine Exercise Name Serratus Punch Side bilateral Resistance 2# Reps/Minutes x20 Lat Pull Down Supine Exercise Name Lat Pull Down Resistance Lev 2 TBand, 2# wgt, cane Reps/Minutes 10x 3 Comments Pt cuing needed for scapular depression Sitting Exercises R shoulder AROM Sitting Exercise Name AROM Side bilateral Reps/Minutes x1 each Comments ROM and functional ROM taken Upper trap Sitting Exercise Name UT stretch - lateral flexion Side bilateral Standing Exercises Rows Standing Exercise Name Rows Side bilateral Resistance Lv 3 Reps/Minutes 10x 3 Comments Cuing for scap depression/ retraction IR Standing Exercise Name IR Side bilateral Resistance Lv 3 Reps/Minutes 15x 2 ER Standing Exercise Name ER Side bilateral Resistance Lv 3 Reps/Minutes 15x 2 Shoulder Extension Standing Exercise Name Extension Side bilateral Resistance Lv 3 Reps/Minutes 10x 2 Comments Cuing for scap depression/ retraction PT-OP-T Assessment and Plan Start: 07/16/22 17:01 Freq: Status: Active Protocol: Document 08/27/22 13:03 LRN (Rec: 08/27/22 15:22 [facility] [id number]) Physical Therapy Assessment Rehab Potential Rehabilitation Potential Good Evaluation Complexity Number of Personal Factors/Comorbidities 1-2 Number of Body Systems Impaired 4 or More Clinical Presentation at Evaluation Evolving Impairments Impairments Activity Tolerance,Pain,ROM, Strength Goals Three Impairment R shoulder pain (6/10) limiting mobility. Impairment Sometimes can't move R shoulder overhead due to pain rated 6/10. UE Quickdash score 27 (20-39% impaired, score 20-39) Short Term Goal (STG) Patient will be able to reach 80% AROM overhead without pain , and decrease R shoulder with sleeping. 08/24/22: Not waking with pain . No numbness when waking up. Pain in R shoulder is occasional and not severe; therefore much less sleep interruption. 08/27/22: Little or no numbness/pain in R shoulder with sleeping. If painful, moves shoulder around and pain goes away. Overhead reach is 75% AROM overhead without pain. STG Duration 09/03/22 (08/27/22: Sleeping goal met, painfree ROM improving) Fci Goal (LTG) Reduce pain with avg use of R arm (pain 2-3/10 moving slowly ) and improved function per UE Quickdash score 19 or less. 08/24/22: Much less pain with use of R arm (pain reaching overhead is 2-3/10). 08/27/22: UE Quickdash score 9 .09 (1-19% impaired, score 1- 19) LTG Duration 10/13/22 (08/27/22: MET GOAL) Two Impairment R shoulder decreased strength. Impairment R shoulder: flex, AB, ER, IR is 3+/5 (L shoulder: 5/5 except ER is 3/5). Short Term Goal (STG) Decreased pt perception of crepitus of R shoulder with overhead motions. 08/24/22: Reduced crepitus and reduced in pain. STG Duration 09/03/22 (08/24/22: GOAL MET) Final Inspector Goal (LTG) Be able to play volleyball using R hand to throw & hit volleyball, and do normal things (reach overhead to strike a volleyball, use a hammer or drill overhead, or reach ladder and motion of putting in a lightbulb without having to use the L hand. 08/24/22: Serving underhand and sometimes hits ball overhead. Able to hit overhead but is painful. Painful to reach overhead and tighten down lightbulb. 08/27/22: Painful to reach overhead and tighten down lightbulb. Pt isn't concerned of achieving volleyball goal. LTG Duration 10/17/22 (08/24/22: Improving , can sometimes hit volleyball overhead) One Impairment Lacks appropriate self care HEP Short Term Goal (STG) Pt will be educated in proper sitting/standing posture and best nighttime for pain management. Improve pt's R shoulder IR AROM. 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 STG Duration 07/30/22 (08/24/22: MET GOAL) Final Inspector Goal (LTG) Pt will be independent in a self care HEP of neck and R shoulder ex's. 08/05/22: HEP: shoulder strengthening ex's 08/27/22: Pt states he was given HEP: neck ROM ex of SB & rot. LTG Duration 10/17/22 (08/27/22: Progressed) Assessment Summary Assessment Pt has made good progress overall. He is having less crepitus with reaching R arm overhead and less pain overall . He is sleeping better at night and has returned to volleyball play with modification in the way he normally plays. He has pain with reaching out to the sides and overhead to do functional activities of replacing lightbulbs, using a drill or hammer, and reaching up ladder rungs. The no longer feels it is important to throw or hit a volleyball overhead; therefore the pt will benefit from continued skilled physical therapy to further improve his R RC and scapular stabilizer strength in order to improve his function and place him on an independent HEP. UE QuickDASH score of 9.09 (1- 19% impaired) improved from initial score of 27.27 (20-39% impaired). Physical Therapy Plan Frequency and Duration Frequency of Treatment 2x/Week Plan of Care Start Date 08/27/22 Plan of Care End Date 10/06/22 Therapeutic Interventions Therapeutic Interventions Home Exercise Program,Joint Mobilizations,Manual Therapy, Neuromuscular Re-education, Patient/Caregiver Education, Self-Care/Home Management,Soft Tissue Mobilization,Taping, Therapeutic Activities, Therapeutic Exercises Modalities Cold Pack/Ice Massage,Electric Stimulation,Hot Packs Next Visit Focus/Plan Next Note Type Treatment Note Next Visit Plan Reassess in 2 weeks for improvement in %ROM of R shoulder w/o pain when reaching overhead (addressing STG #3). DC to HEP if no change in function/ROM, otherwise continue for another 2 weeks. R shoulder RC strengthening and scapular depression strengthening. Check: JMT; biceps (ROM/ strength). Modalities to end as needed ( ice/IFES).
--- NOTE | 2022-10-01 16:40 | PT-OP ANOTE ---
Per phone conversation the pt reports he attended therapy at what he thought was his appt time of 3:45, but his appt time was actually 3:15. The pt would like to be seen for one more therapy visit to finalize his home care before discharge. Pt was informed to contact schedule desk first in the morning on Tuesday to try and reschedule appt. Pt agreeable and hopes to speak to management regarding charges for his missed appt. Plan of DC at next visit.
--- NOTE | 2022-10-05 18:19 | PT.OTN ---
Current Diagnoses Muscle weakness (generalized) (10/05/22) Other shoulder lesions, right shoulder (10/05/22) Abnormal posture (10/05/22) Physical Therapy Treatment Note PT-OP-A Visit Information Start: 07/16/22 17:01 Freq: Status: Active Protocol: Document 10/05/22 10:36 LRN (Rec: 10/05/22 11:20 LRN [id number]) Out-Patient Physical Therapy Visit Information Visit Information Visit Type Treatment Note Visit Start Time 10:36 Visit Stop Time 11:16 Total Visit Minutes 40 Visit Number 8 Evaluation Information Evaluation Date 07/19/22 Precautions Precautions L ankle injury receiving cortisone injections quarterly over 4 yrs, 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 PT-OP-B Current Condition Start: 07/16/22 17:01 Freq: Status: Active Protocol: Document 07/19/22 13:03 LRN (Rec: 07/19/22 14:37 LRN [id number]) Current Condition History of Current Condition Onset Date Dec 2021 Current Complaints Lacks R shoulder motion overhead and lacks strength History of Current Condition Pain exacerbated by doing a lot of overhead work at home. Acute injury to rotator cuff late Dec became noticeable playing volleyball and doing overhead work (wiring and lightbulb work) because of difficulty reaching overhead and maintaining strength (ex- overhand hits of volleyball). Two year hold on playing volleyball due to C19 Pandemic ; when returned to volleyball was unable to toss ball up and hit it overhead with R arm. During the 2 yrs hiatus from volleyball he did a lot of overhead work remodeling his house. He does aerobic exer daily ([place] track 80 minutes and stair-stepper) and he self K-tapes his R biceps due to tear/separation. Prior Treatments and Tests None for R shoulder. L ankle getting cortisone injections 3-4 times/year due to bad injury in his 's. Treatment Goals Patient/Caregiver Goals Pt goal: Be able to retain some ability to reach overhead with 80% ROM, Be able to play volleyball using R hand to throw & hit volleyball, Do normal things (reach overhead and put in a lightbulb or rewire a light without having to use the L hand) without crunching in the R shoulder. Prior Functional Status Baseline Function- ADL's Independent Baseline Function- Mobility Independent Baseline Function- Recreation/Hobbies Played volleyball 2-3x/week. Taking IBP propholactically. Baseline Function- Other Occasional pain in L shoulder 2-3 throwing volleyball up and hitting the ball. Uses K-tape on L shoulder, and starting using it on the R shoulder ~February for biceps. Current Functional Impairments (Reported) Functional Limitations- ADL's Debilitating reaching overhead and holding anything overhead . Has pain down his upper forearm with sleeping and on waking has throbbing in the R arm. 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 Functional Limitations- Recreation/ Volleyball play 2x/week (Tue, Hobbies Tue and sometimes weekends) Personal Factors Other Personal Factors That May Effect Plays volleyball 2-3x/week, Therapy/Recovery Hard of hearing, R hand dominant, arthritis. PT-OP-C Subjective Start: 07/16/22 17:01 Freq: Status: Active Protocol: Document 10/05/22 10:36 LRN (Rec: 10/05/22 11:20 LRN [id number]) OP-PT Subjective Patient Comments Patient Comments Has been doing ex's and playing volleyball and it feels good with tape on. Patient Questionnaires Quick Dash- Upper Extremity Quick Dash UE Score 4.54 Quick Dash UE Impairment 1 to 19% Impaired (Score 1-19) PT-OP-E Functional Tests Start: 07/16/22 17:01 Freq: Status: Active Protocol: Document 08/27/22 13:03 LRN (Rec: 08/27/22 15:22 LRN [id number]) Functional Tests Apley's Scratch Test Action 1- Left Top of opp shoulder Action 1- Right Top of opp shoulder Action 2- Left T2 Action 2- Right T2 Action 3- Left L4 Action 3- Right L5 PT-OP-H Neuro Start: 07/16/22 17:01 Freq: Status: Active Protocol: Document 07/19/22 13:03 LRN (Rec: 07/19/22 14:37 LRN [id number]) Sensation Evaluation Gross Sensation Gross Sensation WNL Comments Summary Comments Occasional numbness/throbbing in radial side of forearm and into the hand radial>ulnar side. Started ~Oct 2021. Occssionally occurred in past when sleeping on the arm wrong . Can come and go. PT-OP-J Posture/Palpation/Skin Start: 07/16/22 17:01 Freq: Status: Active Protocol: Document 07/19/22 13:03 LRN (Rec: 07/19/22 14:37 LRN [id number]) Posture Evaluation Position Standing Head/C-Spine Posture Forward Head T-Spine Posture Increased Kyphosis L-Spine Posture Decreased Lordosis Shoulder Posture (L) Elevated Scapula Posture (R) Rotated Down,(R) Depressed Arm Posture (R) Neutral Hip Posture (L) Flexed,(R) Flexed Comments Posture Comments R shoulder low, and retracted, stands R leg forward. Wears heavy above ankle high boots for ankle support. Palpation Assessment Location R posterior shoulder Palpation Location Teres Minor Palpation Findings Tenderness R shoulder Palpation Location R shoulder Infraspinatus, Teres Minor Palpation Findings Tenderness PT-OP-K Range of Motion Start: 07/16/22 17:01 Freq: Status: Active Protocol: Document 10/05/22 10:36 LRN (Rec: 10/05/22 11:20 LRN [id number]) Shoulder Goniometric Range of Motion Shoulder Right Passive Testing Position Sitting Flexion 138 Right Active Testing Position Sitting Flexion 144 Extension 62 Abduction 167 External Rotation at 90 degrees 75 Abduction Internal Rotation Behind Back (text) S2 Left Active Shoulder ROM WFL Yes Testing Position Sitting Flexion 140 Extension 70 Abduction 158 External Rotation at 90 degrees 82 Abduction Internal Rotation Behind Back (text) L1-L2 PT-OP-L Special Tests Start: 07/16/22 17:01 Freq: Status: Active Protocol: Document 07/23/22 14:34 LRN (Rec: 07/23/22 17:13 LRN [id number]) Special Tests Cervical Spine Special Tests Spurling's Test Test Results Negative Traction Comments Created pain in L medial scapula border. Foraminal Compression Test Results Negative Comments No change in UE sensation. PT-OP-M Strength Start: 07/16/22 17:01 Freq: Status: Active Protocol: Document 07/19/22 13:03 LRN (Rec: 07/19/22 14:37 LRN [id number]) Cervical Spine Strength Cervical Spine Manual Muscle Testing Testing Position Sitting Comments Generally 5/5 Shoulder Strength Shoulder Manual Muscle Testing Right Flexion 3+ Fair+ Abduction (C5) 3+ Fair+ External Rotation 3+ Fair+ Internal Rotation 3+ Fair+ Comments Strength is 5/5 except as indicated above. Left External Rotation 3 Fair Comments Strength is 5/5 except as indicated above. PT-OP-Q Treatments Start: 07/16/22 17:01 Freq: Status: Active Protocol: Document 10/05/22 10:36 LRN (Rec: 10/05/22 11:20 LRN [id number]) Cardio Equipment Upper Body Ergometer (UBE) Duration (Minutes) 7 RPM 70 Seat Position 12 Height 1.5 Other fwd/bkwd motioin Recumbent Elliptical (Biodex) Duration (Minutes) 3 Resistance 5 Seat Position 8 Therapeutic Exercises Sitting Exercises L shoulder AROM Sitting Exercise Name L shoulder AROM Side left Comments ROM taken R shoulder AROM Sitting Exercise Name R shoulder AROM and stretch Side right Comments AROM taken IR/ER Sitting Exercise Name Shoulder IR/ER review Side bilateral Standing Exercises Shoulder Flex stretch Standing Exercise Name Shoulder Flex & AB stretch off wall Side right Reps/Minutes 5' Self-Care/Home Management Treatment Education Patient Education Home Exercise Program Other Education Reviewed proper posturing and ex for sacpaular retract/ depresssion, and his traditional stretches. PT-OP-T Assessment and Plan Start: 07/16/22 17:01 Freq: Status: Active Protocol: Document 10/05/22 10:36 LRN (Rec: 10/05/22 11:20 [facility] [id number]) Physical Therapy Assessment Goals Three Impairment R shoulder pain (6/10) limiting mobility. Impairment Sometimes can't move R shoulder overhead due to pain rated 6/10. UE Quickdash score 27 (20-39% impaired, score 20-39) Short Term Goal (STG) Patient will be able to reach 80% AROM overhead without pain , and decrease R shoulder with sleeping. 08/24/22: Not waking with pain . No numbness when waking up. Pain in R shoulder is occasional and not severe; therefore much less sleep interruption. 08/27/22: Little or no numbness/pain in R shoulder with sleeping. If painful, moves shoulder around and pain goes away. Overhead reach is 75% AROM overhead without pain. 10/05/22: Having very little pain with sleeping. Has a little tinge of pain with reaching overhead to put in a lightbulb. Has 80% of mobility. Sitting AROM: R>L, over 100% mobility. STG Duration 09/03/22 (10/05/22: MET GOAL ) Research Assistant Goal (LTG) Reduce pain with avg use of R arm (pain 2-3/10 moving slowly ) and improved function per UE Quickdash score 19 or less. 08/24/22: Much less pain with use of R arm (pain reaching overhead is 2-3/10). 08/27/22: UE Quickdash score 9 .09 (1-19% impaired, score 1- 19) LTG Duration 10/13/22 (08/27/22: MET GOAL) Two Impairment R shoulder decreased strength. Impairment R shoulder: flex, AB, ER, IR is 3+/5 (L shoulder: 5/5 except ER is 3/5). Short Term Goal (STG) Decreased pt perception of crepitus of R shoulder with overhead motions. 08/24/22: Reduced crepitus and reduced in pain. STG Duration 09/03/22 (08/24/22: GOAL MET) Senior Care Goal (LTG) Be able to play volleyball using R hand to throw & hit volleyball, and do normal things (reach overhead to strike a volleyball, use a hammer or drill overhead, or reach ladder and motion of putting in a lightbulb without having to use the L hand). 08/24/22: Serving underhand and sometimes hits ball overhead. Able to hit overhead but is painful. Painful to reach overhead and tighten down lightbulb. 08/27/22: Painful to reach overhead and tighten down lightbulb. Pt isn't concerned of achieving volleyball goal. 10/05/22: Hitting w/R hand, but is not overhead serving/ hitting with R arm. Can use a hammer or drill overhead. Has no sharp pain, only irritation with reach overhead on ladder and motion of putting in a lightbulb without having to use the L hand. LTG Duration 10/17/22 (10/01/22: MET GOAL One Impairment Lacks appropriate self care HEP Short Term Goal (STG) Pt will be educated in proper sitting/standing posture and best nighttime for pain management. Improve pt's R shoulder IR AROM. 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 STG Duration 07/30/22 (08/24/22: MET GOAL) Senior Care Goal (LTG) Pt will be independent in a self care HEP of neck and R shoulder ex's. 08/05/22: HEP: shoulder strengthening ex's 08/27/22: Pt states he was given HEP: neck ROM ex of SB & rot. 10/05/22: Reviewed HEP, pt has ex's organized at home and is confident in his ex's. LTG Duration 10/17/22 (10/05/22: MET GOAL ) Assessment Summary Assessment Pt appears to have met all his goals. He has 100% R shoulder AROM (same as L shoulder, both shoulders are limited in mobility). He appears to have a good understanding of his HEP; therefore the pt is ready to be discharged to his [facility]. His UE function impairment is the same, but his overall score has improved from 98.09 to 4.54, indicating improvement in function. The pt is confident he can continue on his HEP and manage his activities. The pt is ready for discharge to his [facility] . Physical Therapy Plan Frequency and Duration Frequency of Treatment 2x/Week Plan of Care Start Date 08/27/22 Plan of Care End Date 10/06/22 Discharge Physical Therapy Discharge Reasons Goals Met Discharge Comments Thank you for your referral.
== END 2022-10-06 09:30 | disposition home or self-care (01) ==
LOC: PHYS 10:30
PROVIDERS: PCP Internal Medicine; Referring Provider Internal Medicine; Visit Provider Internal Medicine
DX: M75.81 Other shoulder lesions, right shoulder (principal); M62.81 Muscle weakness (generalized); R29.3 Abnormal posture
CPT/HCPCS: 97110; 97140; 97162; 97535

== ENCOUNTER → 2023-01-11 12:04 | Outpatient (CLI) | payer MEDICARE, SELFPAY ==
[2023-01-11 14:32] LABS: Hematocrit 35.6 % (41-53); Mean Corpuscular HGB Conc 33.6 % (30-36); Mean Corpuscular Hemoglobin 29.9 PG (26-34); Platelet Count 205 X10^3/uL (150-400); Red Cell Distribution Width 13.8 % (11.6-14.8); White Blood Cell Count 5.4 X10^3/uL (4.5-11.0)
[2023-01-11 14:45] LABS: HEMOLYSIS < 15 (0-50)
[2023-01-11 14:54] LABS: Alanine Aminotransferase 30 IU/L (<50); Albumin 4.1 g/dL (3.5-5.0); Albumin Globulin Ratio 1.3 (1.0-2.8); Alkaline Phosphatase 71 U/L (38-126); Aspartate Aminotransferase 35 IU/L (17-59); BUN Creatinine Ratio 12.6 (6-22); Bilirubin Total 0.5 mg/dL (0.2-1.3); Blood Urea Nitrogen 21 mg/dL (9-20); Carbon Dioxide 27 mmol/L (22-32); Chloride 100 mmol/L (98-107); Cholesterol 174 mg/dL (140-199); Estimated Glomerular Filt Rate 43 mL/min (>60); Globulin 3.2 g/dL (1.7-4.1); Glucose 90 mg/dL (80-110); HDL Cholesterol 46 mg/dL (40-60); LDL Cholesterol Calculated 104 mg/dL (<100); Potassium 4.4 mmol/L (3.4-5.1); Sodium 136 mmol/L (137-145); Total Protein 7.3 g/dL (6.3-8.2); Triglycerides 119 mg/dL (35-150)
[2023-01-11 15:26] LABS: Prostate Specific Antigen 2.28 ng/mL (0.10-4.00)
[2023-01-13 16:16] LABS: Calcium 9.1 mg/dL (8.6-10.2); Parathyroid Hormone, Intact 110 pg/mL (15-65)
== END ==
PROVIDERS: PCP Internal Medicine; Referring Provider Internal Medicine; Visit Provider Internal Medicine
DX: N25.81 Secondary hyperparathyroidism of renal origin (principal); N40.1 Benign prostatic hyperplasia with lower urinary tract symptoms; N18.32 Chronic kidney disease, stage 3b; E78.2 Mixed hyperlipidemia; N13.8 Other obstructive and reflux uropathy
CPT/HCPCS: 36415; 80053; 80061; 82310; 83970; 84153; 85027

== ENCOUNTER → 2023-03-15 17:09 | Outpatient (CLI) | payer MEDICARE, SELFPAY ==
[2023-03-15 18:36] LABS: BUN Creatinine Ratio 13.1 (6-22); Blood Urea Nitrogen 29 mg/dL (9-20); Calcium 9.3 mg/dL (8.4-10.2); Carbon Dioxide 25 mmol/L (22-32); Chloride 103 mmol/L (98-107); Estimated Glomerular Filt Rate 31 mL/min (>60); Glucose 86 mg/dL (80-110); HEMOLYSIS < 15 (0-50); Potassium 4.9 mmol/L (3.4-5.1); Sodium 135 mmol/L (137-145)
== END ==
PROVIDERS: PCP Internal Medicine; Referring Provider Internal Medicine; Visit Provider Internal Medicine
DX: I10 Essential (primary) hypertension (principal)
CPT/HCPCS: 36415; 80048

== ENCOUNTER → 2023-03-24 17:01 | Outpatient (CLI) | payer MEDICARE, SELFPAY ==
[2023-03-24 18:30] LABS: BUN Creatinine Ratio 11.6 (6-22); Blood Urea Nitrogen 23 mg/dL (9-20); Calcium 9.1 mg/dL (8.4-10.2); Carbon Dioxide 25 mmol/L (22-32); Chloride 102 mmol/L (98-107); Estimated Glomerular Filt Rate 35 mL/min (>60); Glucose 89 mg/dL (80-110); HEMOLYSIS < 15 (0-50); Potassium 4.3 mmol/L (3.4-5.1); Sodium 135 mmol/L (137-145)
== END ==
PROVIDERS: PCP Internal Medicine; Referring Provider Internal Medicine; Visit Provider Internal Medicine
DX: N18.32 Chronic kidney disease, stage 3b (principal)
CPT/HCPCS: 36415; 80048

== ENCOUNTER → 2023-04-11 14:57 | Outpatient (CLI) | payer MEDICARE, SELFPAY ==
[2023-04-11 16:52] LABS: BUN Creatinine Ratio 11.9 (6-22); Blood Urea Nitrogen 26 mg/dL (9-20); Calcium 9.2 mg/dL (8.4-10.2); Carbon Dioxide 24 mmol/L (22-32); Chloride 104 mmol/L (98-107); Estimated Glomerular Filt Rate 32 mL/min (>60); Glucose 103 mg/dL (80-110); HEMOLYSIS < 15 (0-50); Potassium 4.6 mmol/L (3.4-5.1); Sodium 137 mmol/L (137-145)
== END ==
PROVIDERS: PCP Internal Medicine; Referring Provider Internal Medicine; Visit Provider Internal Medicine
DX: N18.32 Chronic kidney disease, stage 3b (principal)
CPT/HCPCS: 36415; 80048

== ENCOUNTER → 2023-07-28 15:00 | Outpatient (CLI) | payer MEDICARE, SELFPAY ==
[2023-07-28 15:59] LABS: Blood Urea Nitrogen 36 mg/dL (9-20); Calcium 9.5 mg/dL (8.4-10.2); Carbon Dioxide 24 mmol/L (22-32); Chloride 104 mmol/L (98-107); Estimated Glomerular Filt Rate 35 mL/min (>60); Glucose 86 mg/dL (80-110); HEMOLYSIS < 15 (0-50); Potassium 5.3 mmol/L (3.4-5.1); Sodium 136 mmol/L (137-145)
[2023-07-30 08:50] LABS: Calcium 9.4 mg/dL (8.6-10.2); Parathyroid Hormone, Intact 47 pg/mL (15-65)
== END ==
PROVIDERS: PCP Internal Medicine; Referring Provider Internal Medicine; Visit Provider Internal Medicine
DX: I10 Essential (primary) hypertension (principal); N18.32 Chronic kidney disease, stage 3b; N25.81 Secondary hyperparathyroidism of renal origin
CPT/HCPCS: 36415; 80048; 82310; 83970

== ENCOUNTER → 2024-01-12 16:03 | Outpatient (CLI) | payer MEDICARE, SELFPAY ==
[2024-01-12 17:40] LABS: Aspartate Aminotransferase 61 IU/L (17-59); Blood Urea Nitrogen 25 mg/dL (9-20); Calcium 9.2 mg/dL (8.4-10.2); Carbon Dioxide 21 mmol/L (22-32); Chloride 106 mmol/L (98-107); Cholesterol 165 mg/dL (140-199); Estimated Glomerular Filt Rate 40 mL/min (>60); Glucose 90 mg/dL (80-110); HDL Cholesterol 47 mg/dL (40-60); LDL Cholesterol Calculated 100 mg/dL (<100); Sodium 135 mmol/L (137-145); Triglycerides 88 mg/dL (35-150)
[2024-01-12 17:42] LABS: HEMOLYSIS 132 (0-50); Hematocrit 35.7 % (41-53); Hemoglobin 11.9 g/dL (13.5-17.5); Mean Corpuscular HGB Conc 33.4 % (30-36); Mean Corpuscular Volume 89.9 fL (80-100); Red Blood Cell Count 3.97 X10^6/uL (4.5-5.9); Red Cell Distribution Width 14.4 % (11.6-14.8); White Blood Cell Count 5.4 X10^3/uL (4.5-11.0)
[2024-01-12 17:43] LABS: Potassium 5.1 mmol/L (3.4-5.1)
== END ==
PROVIDERS: PCP Internal Medicine; Referring Provider Internal Medicine; Visit Provider Internal Medicine
DX: N18.9 Chronic kidney disease, unspecified (principal); D63.1 Anemia in chronic kidney disease; N18.32 Chronic kidney disease, stage 3b; E78.2 Mixed hyperlipidemia
CPT/HCPCS: 36415; 80048; 80061; 84450; 85027

== ENCOUNTER → 2024-07-12 14:32 | Outpatient (CLI) | payer MEDICARE, SELFPAY ==
[2024-07-12 15:02] LABS: Hematocrit 35.1 % (41-53); Hemoglobin 11.7 g/dL (13.5-17.5); Mean Corpuscular HGB Conc 33.4 % (30-36); Mean Corpuscular Hemoglobin 30.7 PG (26-34); Mean Corpuscular Volume 91.9 fL (80-100); Platelet Count 218 X10^3/uL (150-400); Red Blood Cell Count 3.82 X10^6/uL (4.5-5.9); Red Cell Distribution Width 13.8 % (11.6-14.8); White Blood Cell Count 5.6 X10^3/uL (4.5-11.0)
[2024-07-12 15:41] LABS: BUN Creatinine Ratio 11.8 (6-22); Blood Urea Nitrogen 26 mg/dL (9-20); Calcium 9.7 mg/dL (8.4-10.2); Carbon Dioxide 23 mmol/L (22-32); Chloride 105 mmol/L (98-107); Estimated Glomerular Filt Rate 31 mL/min (>60); Glucose 102 mg/dL (80-110); HEMOLYSIS < 15 (0-50); Sodium 137 mmol/L (137-145)
[2024-07-12 15:51] LABS: Potassium 5.8 mmol/L (3.4-5.1)
== END ==
LOC: LAB 14:33
PROVIDERS: PCP Internal Medicine; Referring Provider Internal Medicine; Visit Provider Internal Medicine
DX: N18.32 Chronic kidney disease, stage 3b (principal); D63.1 Anemia in chronic kidney disease
CPT/HCPCS: 36415; 80048; 85027

== ENCOUNTER → 2024-09-25 15:10 | Outpatient (CLI) | payer MEDICARE, SELFPAY ==
--- NOTE | 2024-09-25 15:11 | DI.CT.S_ITS ---
PROCEDURE: CT LE LT W CON INDICATIONS: ARTHRITIS OF LEFT ANKLE TECHNIQUE: Noncontrast 1-1.5 mm axial sections acquired from distal femoral shaft to the bottom of the calcaneus, with coronal and sagittal reformats. COMPARISON: [facility] [place], CR, XR ANKLE 3 VIEWS WEIGHT BEARING LEFT, 11/29/2019, 14:48. FINDINGS: Image quality: Excellent. Bones: [id number] tricompartmental osteoarthritis in left knee is seen more notably in medial femoral tibial compartment. No acute fracture or dislocation. No significant patellar subluxation. There is no left lower leg fracture or dislocation. No suspicious bony lesions. No cortical erosion or abnormal periosteal reaction. Severe tibiotalar joint osteoarthritis is seen with near complete loss of joint space, extensive remodeling, subchondral sclerosis and cystic changes and prominent anterior and posterior marginal osteophyte formation. Moderate osteoarthritic changes are noted throughout rest of the left foot more notably involving subtalar joint and talonavicular joint. Well-defined plantar and dorsal calcaneal enthesophytes are seen. No suspicious bony lesions. Soft tissues: There is no significant left knee joint effusion or calcified intra-articular loose bodies. No soft tissue mass or drainable fluid collection is seen in the visualized left lower extremity. Mild subcutaneous soft tissue edema and swelling around mid to distal lower leg extending to hindfoot is seen. No gross full-thickness tendon or muscle rupture. IMPRESSION: 1. Severe left tibiotalar joint osteoarthritis as described above. [id number] osteoarthritic changes throughout rest of the left foot. [id number] osteoarthritic changes also seen in left knee. No acute fracture or dislocation. No suspicious bony lesions. 2. Soft tissue swelling and edema involving mid to distal left calf extending to hindfoot. No discrete drainable abscess collection. No soft tissue mass or abnormal soft tissue calcifications. No significant joint effusion. No gross full-thickness lower leg tendon or muscle rupture. Dictated by: Abdulaziz Caicedo M.D. on 09/26/2024 at 10:35 Approved by: Abdulaziz Caicedo M.D. on 09/26/2024 at 10:44
== END ==
LOC: CT 15:11
PROVIDERS: PCP Internal Medicine; Referring Provider Orthopaedic Surgery Foot and Ankle Surgery; Visit Provider Orthopaedic Surgery Foot and Ankle Surgery
DX: M19.072 Primary osteoarthritis, left ankle and foot (principal); M79.89 Other specified soft tissue disorders
CPT/HCPCS: 73700

== ENCOUNTER → 2025-09-23 16:20 | Outpatient (CLI) | payer MEDICARE, SELFPAY ==
[2025-09-23 17:08] LABS: Hematocrit 37.1 % (41-53); Hemoglobin 12.2 g/dL (13.5-17.5); Mean Corpuscular HGB Conc 33.0 % (30-36); Mean Corpuscular Hemoglobin 29.3 PG (26-34); Mean Corpuscular Volume 88.9 fL (80-100); Platelet Count 241 X10^3/uL (150-400)
[2025-09-23 17:28] LABS: HEMOLYSIS < 15 (0-50); Iron 54 ug/dL (49-181)
[2025-09-23 17:30] LABS: Alanine Aminotransferase 23 IU/L (<50); Albumin 4.4 g/dL (3.5-5.0); Albumin Globulin Ratio 1.5 (1.0-2.8); Alkaline Phosphatase 76 U/L (38-126); Blood Urea Nitrogen 19 mg/dL (9-20); Calcium 9.3 mg/dL (8.4-10.2); Carbon Dioxide 24 mmol/L (22-32); Chloride 102 mmol/L (98-107); Cholesterol 159 mg/dL (140-199); Estimated Glomerular Filt Rate 40 mL/min (>60); Globulin 2.9 g/dL (1.7-4.1); Glucose 95 mg/dL (70-99); HDL Cholesterol 51 mg/dL (40-60); HEMOLYSIS < 15 (0-50); Potassium 4.3 mmol/L (3.4-5.1); Sodium 135 mmol/L (137-145); Total Protein 7.3 g/dL (6.3-8.2); Triglycerides 144 mg/dL (35-150)
[2025-09-23 17:40] LABS: Percent Iron Saturation 15 % (20-50); Total Iron Binding Capacity 362 ug/dL (261-462); Transferrin 307 mg/dL (206-381)
[2025-09-23 18:05] LABS: Prostate Specific Antigen 2.38 ng/mL (0.10-4.00)
[2025-09-23 18:09] LABS: Ferritin 32 ng/mL (18-464)
[2025-09-23 18:18] LABS: Vitamin B12 Reflex MMA if <400 557 pg/mL (239-931)
[2025-09-26 13:40] LABS: Calcium 9.1 mg/dL (8.6-10.2); Parathyroid Hormone, Intact 78 pg/mL (15-65)
== END ==
PROVIDERS: PCP Internal Medicine; Referring Provider Internal Medicine; Visit Provider Internal Medicine
DX: E78.2 Mixed hyperlipidemia (principal); N18.32 Chronic kidney disease, stage 3b; N40.1 Benign prostatic hyperplasia with lower urinary tract symptoms; N13.8 Other obstructive and reflux uropathy; E61.1 Iron deficiency; E53.8 Deficiency of other specified B group vitamins
CPT/HCPCS: 36415; 80053; 80061; 82310; 82607; 82728; 83540; 83550; 83970; 84153; 85027

== ENCOUNTER → 2025-10-02 16:38 | Outpatient (CLI) | payer MEDICARE, SELFPAY ==
--- NOTE | 2025-10-02 16:39 | DI.RAD.S_ITS ---
PROCEDURE: XR SHOULDER RT MIN 2V
== END ==
PROVIDERS: PCP Internal Medicine; Referring Provider Internal Medicine; Visit Provider Internal Medicine
DX: M19.011 Primary osteoarthritis, right shoulder (principal); S22.31XS Fracture of one rib, right side, sequela
CPT/HCPCS: 73030